=== PATIENT | female | born 1965 | race Caucasian/White ===

== ENCOUNTER → 2019-06-09 10:48 | Outpatient (BNVA) | payer MEDICARE, MEDICAID, SELFPAY | PROVIDERS: Family Provider Internal Medicine; PCP Internal Medicine; Visit Provider Nurse Practitioner | DX: M47.27 Other spondylosis with radiculopathy, lumbosacral region (principal); F17.210 Nicotine dependence, cigarettes, uncomplicated; Z79.891 Long term (current) use of opiate analgesic | CPT/HCPCS: 99213; 99214 ==

== ENCOUNTER → 2019-06-10 15:37 | Outpatient (BNVA) | payer MEDICARE, MEDICAID, SELFPAY | PROVIDERS: Family Provider Internal Medicine; PCP Internal Medicine; Visit Provider Internal Medicine Rheumatology | DX: M35.00 Sjogren syndrome, unspecified (principal); Z79.899 Other long term (current) drug therapy; Z11.59 Encounter for screening for other viral diseases; Z11.1 Encounter for screening for respiratory tuberculosis; M06.4 Inflammatory polyarthropathy; M19.90 Unspecified osteoarthritis, unspecified site; I10 Essential (primary) hypertension; F17.210 Nicotine dependence, cigarettes, uncomplicated | CPT/HCPCS: 99214 ==

== ENCOUNTER 2019-06-11 13:03 | Outpatient (CLI) | payer MEDICARE, MEDICAID, SELFPAY ==
--- NOTE | 2019-06-11 13:10 | XR_ITS ---
WS: [id number] FOOT LEFT TECHNIQUE: 3 views of the left foot CLINICAL INFORMATION: Sjorgen's Syndrome COMPARISON: None. FINDINGS: No evidence of acute fracture or dislocation. Normal tarsal metatarsal alignment. Normal calcaneus. N ormal visualized talar dome. Plantar and Achilles calcaneal spurring. XR/XR foot LT min 3V* [id number] IMPRESSION: Plantar and Achilles calcaneal spurring. Otherwise unremarkable.
--- NOTE | 2019-06-11 13:10 | XR_ITS ---
WS: [id number] FOOT RIGHT TECHNIQUE: 3 views of the right foot CLINICAL INFORMATION: Sjorgen's Syndrome COMPARISON: None. FINDINGS: No evidence of acute fracture or dislocation. Normal tarsal metatarsal alignment. Normal calcaneus. N ormal visualized talar dome. Plantar and Achilles calcaneal spurring. XR/XR foot RT min 3V* [id number] IMPRESSION: Plantar and Achilles calcaneal spurring. Right foot otherwise unremarkable.
--- NOTE | 2019-06-11 13:10 | XR_ITS ---
WS: [id number] HAND RIGHT TECHNIQUE: 3 views of the right hand CLINICAL INFORMATION: inflammatory arthritis COMPARISON: None. FINDINGS: Normal metacarpals. Normal MCP joint. Metacarpal heads are normal in appearance. PIP and DIP joints a re relatively well-preserved. No evidence of acute fracture or dislocation. Radiocarpal joint: Normal. Carpal bones: Normal. XR/XR hand RT min 3V* [id number] IMPRESSION: Normal right hand.
--- NOTE | 2019-06-11 13:10 | XR_ITS ---
WS: [id number] HAND LEFT TECHNIQUE: 3 views of the left hand CLINICAL INFORMATION: Sjorgen's Syndrome COMPARISON: None. FINDINGS: Normal metacarpals. Normal MCP joint. Metacarpal heads are normal in appearance. PIP and DIP joints r elatively well-preserved. No evidence of acute fracture or dislocation. Radiocarpal joint: Normal. Carpal bones: Normal. XR/XR hand LT min 3V* [id number] IMPRESSION: Normal left hand.
== END 2019-06-11 13:04 | disposition home or self-care (01) ==
PROVIDERS: Family Provider Internal Medicine; PCP Internal Medicine; Visit Provider Internal Medicine Rheumatology
DX: M35.00 Sjogren syndrome, unspecified (principal); Z79.899 Other long term (current) drug therapy; Z11.59 Encounter for screening for other viral diseases; Z11.1 Encounter for screening for respiratory tuberculosis; M06.4 Inflammatory polyarthropathy; M19.90 Unspecified osteoarthritis, unspecified site; I10 Essential (primary) hypertension; F17.210 Nicotine dependence, cigarettes, uncomplicated; M77.31 Calcaneal spur, right foot; M77.32 Calcaneal spur, left foot
CPT/HCPCS: 36415; 73130; 73630; 80076; 82565; 85025; 86140; 86431; 86480; 86704; 86803

== ENCOUNTER → 2019-06-11 14:14 | Outpatient (BNVA) | payer MEDICARE, MEDICAID, SELFPAY | PROVIDERS: Family Provider Internal Medicine; PCP Internal Medicine; Visit Provider Internal Medicine Rheumatology | DX: Z79.899 Other long term (current) drug therapy (principal); Z11.59 Encounter for screening for other viral diseases; M19.90 Unspecified osteoarthritis, unspecified site; M35.00 Sjogren syndrome, unspecified; M06.4 Inflammatory polyarthropathy | CPT/HCPCS: 85025 ==

== ENCOUNTER 2019-07-03 10:03 | Outpatient (CLI) | payer MEDICARE, MEDICAID, SELFPAY ==
--- NOTE | 2019-07-03 10:16 | MM_ITS ---
WS: [id number] SCREENING DIGITAL MAMMOGRAM WITH CAD HISTORY: SCREENING COMPARISON: None available. Bilateral CC and MLO views submitted. Computer aided detection analyzed. Breast composition: There are scattered areas of fibroglandular density. Slightly spiculated asymmetr y in the superior RIGHT breast on the MLO projection measures 5 mm. There may be a corresponding asym metry on the CC projection just lateral to the nipple line. Additional lymph node in the posterior RI GHT breast. LEFT breast is negative. RIGHT breast: Spot compression views (CC and MLO). True ML. Ultrasound to follow if abnormality persi sts. MM/[place] [id number] IMPRESSION: BI-RADS: 0-Incomplete: Need additional imaging evaluation FOLLOW UP: Need Additional Imaging
== END 2019-07-03 10:04 | disposition home or self-care (01) ==
LOC: RADSHAW 10:08
PROVIDERS: Family Provider Internal Medicine; PCP Internal Medicine; Visit Provider Internal Medicine
DX: Z12.31 Encounter for screening mammogram for malignant neoplasm of breast (principal)
CPT/HCPCS: 77067

== ENCOUNTER 2019-07-08 06:41 | Day surgery (SDC) | payer MEDICARE, MEDICAID, SELFPAY ==
[2019-07-07 09:49] VITALS: BMI 36.2
[2019-07-08 07:45] VITALS: BP 169/90; PULSE 81; RESP 18; TEMP 36.6; O2SAT 96
--- NOTE | 2019-07-08 07:53 | ANES.PREANE2 ---
Pre-Anesthetic Assessment Pre-Anesthetic Assessment: Height/Weight: Height 1.65 m Weight 98.883 kg Temp Pulse Resp BP Pulse Ox 97.8 F 81 18 169/90 96 07/08/19 07:45 07/08/19 07:45 07/08/19 07:45 07/08/19 07:45 07/08/19 07:45 Preop Diagnosis: Screening colonoscopy Proposed Procedure: Operation Date: 07/08/19 08:30 Proposed Procedures p Colonoscopy 74008 Z12.11(Not Applicable) - Nitin Martinez MD Was Beta Romero taken within 24 hours: N/A Last intake: Intake Last Liquid Date 07/07/19 Last Liquid Time 21:00 Last Solid Date 07/06/19 Last Solid Time 21:00 Social: Social History: Tobacco and No alcohol Exam: Pre-Anes Outpt Exam: alert, oriented x 3, clear to auscultation bilaterally and regular rate & rhythm Airway: Submandibular: WNL Cervical ROM: WNL MP: 2 Dentition: Full Pulmonary: Pulmonary: COPD CV/HEM: CV/HEM: None reported : : None reported Hepatic: Hepatic: None reported GI: GI: GERD Metabolic: Metabolic: Morbid obesity Musc/skel: Musc/skel: Lower Back Pain Anesthetic Plan: ASA status: 3 Anesthesia: MAC Risk of > 500 ml blood loss (7ml/kg in children): No PFSH Anesthesia PFSH: Medical History Long-term current use of opiate analgesic Lumbosacral spondylosis with radiculopathy Pain management contract signed Screen for colon cancer Smoker Surgical History (Updated 06/09/19 @ 11:54 by SUMEET Gill) History of endometrial ablation History of laparoscopic cholecystectomy 1998 Family History (Updated 06/10/19 @ 16:23 by Kasandra Feliz LPN) Denies family history of Rheumatoid arthritis Lupus Anesthesia complication Bleeding disorder Social History Smoking and tobacco status: current every day smoker cigarettes Second hand smoke exposure: Yes Alcohol intake: never Adopted: No Caregiver/support person: Yes Lives independently: Yes Household members: spouse Housing: House Highest education level completed: High School Graduate service: No Current occupational exposures/hazards: No Pets and animals: No History of recent travel: No Sexually active: No Current gender identity: Female Maral/Synagogue: Yazdanism Special maral needs: No Agree to transfusion: No Financial difficulty paying for basics: Decline to Answer Data Anesthesia Cardiac Studies: No Data to Display
[2019-07-08] MEDS: sodium chloride 0.9% 1,000 ML 30 ML (08:01)
--- NOTE | 2019-07-08 09:10 | W.PM.OPSFHP ---
Same Day Surgery H&P Indication for Procedure/HPI DATE OF PROCEDURE: July 08, 2019 CHIEF COMPLAINT/INDICATIONFOR SURGICAL PROCEDURE: I am here for screening colonoscopy PREOP DIAGNOSIS: Screening colonoscopy PLANNED PROCEDRUE: Operation Date: 07/08/19 08:30 Proposed Procedures p Colonoscopy 76968 Z12.11(Not Applicable) - Nitin Martinez MD Patient is 53 years old never had a screening colonoscopy before she has been evaluated in my office to undergo such a procedure today, she denies any other constitutional symptom ROS All systems have been reviewed negative except as per the above and listed per problem list Medications/Allergies* Home Medications Medication Instructions Recorded Confirmed Type levothyroxine 137 mcg capsule 137 mcg PO ONCE 05/02/19 07/08/19 History cyclobenzaprine 10 mg tablet 10 mg PO TID 06/08/19 07/07/19 History loratadine 10 mg tablet 10 mg PO BEDTIME tab 06/09/19 07/08/19 History Allergies/Adverse Reactions Allergy/AdvReac Type Severity Reaction Status Date / Time Penicillins Allergy HIVES Verified 07/08/19 09:10 Sulfa (Sulfonamide Allergy HIVES Verified 07/08/19 09:10 Antibiotics) zonisamide [From Zonegran] Allergy HIVES Verified 07/08/19 09:10 Pertinent History/Comorbid Conditions* Medical History Long-term current use of opiate analgesic Lumbosacral spondylosis with radiculopathy Pain management contract signed Screen for colon cancer Smoker Surgical History (Updated 06/09/19 @ 11:54 by SUMEET Gill) History of endometrial ablation History of laparoscopic cholecystectomy 1998 Family History (Updated 06/10/19 @ 16:23 by Kasandra Feliz LPN) Denies family history of Rheumatoid arthritis Lupus Anesthesia complication Bleeding disorder Social History Smoking and tobacco status: current every day smoker cigarettes Second hand smoke exposure: Yes Alcohol intake: never Adopted: No Caregiver/support person: Yes Lives independently: Yes Household members: spouse Housing: House Highest education level completed: High School Graduate service: No Current occupational exposures/hazards: No Pets and animals: No History of recent travel: No Sexually active: No Current gender identity: Female Maral/Spiritism: Protestant Special maral needs: No Agree to transfusion: No Financial difficulty paying for basics: Decline to Answer Pertinent Exam Findings alert, oriented x 3, clear to auscultation bilaterally, regular rate & rhythm and procedure specific exam findings (Abdominal examination nontender nondistended soft no signs of guarding or rigidity) Pertinent Data PERTINENT DATA: Plan of care; After thorough history and physical examination and reviewing the chart, plan to perform screening colonoscopy in the GI lab All questions have been answered and all concerns have been addressed to patient's satisfaction. Informed consent per chart were,Indications, risks, benefits, and alternatives were all discussed with the patient and did agree to proceed. Verbal and written Instructions were given to the patient for colonoscopy prep Recommendations Surgery/Procedure today (Screening colonoscopy) Coding Level of Care Code Acute Brood Hatchery Manager for Madelyn Garcia
--- NOTE | 2019-07-08 09:32 | SUR.OPER ---
CLIP PLACED AT THE RECTAL POLYP SITE FOR BLEEDING PROPHYLACTIC
--- NOTE | 2019-07-08 09:33 | ANE.PACU2 ---
 Inpatient post-anesthesia follow up: Airway intact: Yes Vital signs: Temperature 97.8 F Pulse Rate 81 Respiratory Rate 18 Blood Pressure 169/90 Pulse Oximetry 96 Oxygen Delivery Me thod Room Air Oxygen Flow Rate Fraction of Inspir ed Oxygen Hydration adequate: Yes Nausea and vomiting: No Pain level: 1 Mental status: Baseline
[2019-07-08 09:39] VITALS: BP 144/86; PULSE 69; RESP 16; TEMP 36.3; O2SAT 93
[2019-07-08 09:54] VITALS: BP 146/77; PULSE 71; RESP 18; O2SAT 96
== END 2019-07-08 10:07 | disposition home or self-care (01) ==
PROVIDERS: Family Provider Internal Medicine; PCP Internal Medicine; Visit Provider Surgery
PROC: 0DJD8ZZ Inspection of Lower Intestinal Tract, Via Natural or Artificial Opening Endoscopic (ICD-10-PCS; CPT 45378; principal; 2019-07-08 08:30)
DX: Z12.11 Encounter for screening for malignant neoplasm of colon (principal); K62.1 Rectal polyp; Z79.891 Long term (current) use of opiate analgesic; F17.210 Nicotine dependence, cigarettes, uncomplicated; J44.9 Chronic obstructive pulmonary disease, unspecified; K21.9 Gastro-esophageal reflux disease without esophagitis; E66.01 Morbid (severe) obesity due to excess calories; Z68.36 Body mass index [BMI] 36.0-36.9, adult
CPT/HCPCS: 12345; 45385; J2704; J7030

== ENCOUNTER 2019-07-22 08:47 | Outpatient (CLI) | payer MEDICARE, MEDICAID, SELFPAY ==
--- NOTE | 2019-07-22 09:23 | MM_ITS ---
WS: [id number] ADDITIONAL VIEWS RIGHT BREAST HISTORY: SPICULATED ASYMMETRY RIGHT BREAST COMPARISON: 07/03/2019 Compression views right CC and MLO projection. True ML also submitted. Asymmetry described in the upper outer quadrant of the RIGHT breast on the screening mammogram resolv es with additional imaging. This is likely superimposed fibroglandular densities. MM/[place] [id number] IMPRESSION: BI-RADS: 2-Benign FOLLOW-UP: 1 Year Follow-up
== END 2019-07-22 08:48 | disposition home or self-care (01) ==
LOC: RADSHAW 08:48
PROVIDERS: Family Provider Internal Medicine; PCP Internal Medicine; Visit Provider Internal Medicine
DX: N64.89 Other specified disorders of breast (principal); R92.2 Inconclusive mammogram
CPT/HCPCS: 77065

== ENCOUNTER → 2019-10-16 12:53 | Outpatient (BNVA) | payer MEDICARE, MEDICAID, SELFPAY | PROVIDERS: Family Provider Internal Medicine; PCP Internal Medicine; Visit Provider Anesthesiology | DX: M54.42 Lumbago with sciatica, left side (principal); M47.27 Other spondylosis with radiculopathy, lumbosacral region; M54.9 Dorsalgia, unspecified; F17.210 Nicotine dependence, cigarettes, uncomplicated; Z79.891 Long term (current) use of opiate analgesic; Z71.6 Tobacco abuse counseling | CPT/HCPCS: 99214 ==

== ENCOUNTER 2019-10-19 16:31 | Outpatient (CLI) | payer MEDICARE, MEDICAID, SELFPAY | END 2019-10-19 16:32 | disposition home or self-care (01) | LOC: SPT 16:32 | PROVIDERS: Family Provider Internal Medicine; PCP Internal Medicine; Visit Provider Podiatrist Foot & Ankle Surgery | DX: M21.41 Flat foot [pes planus] (acquired), right foot (principal); M21.42 Flat foot [pes planus] (acquired), left foot; M77.41 Metatarsalgia, right foot; M77.42 Metatarsalgia, left foot | CPT/HCPCS: 97760; L3030 ==

== ENCOUNTER → 2019-11-05 10:48 | Outpatient (BNVA) | payer MEDICARE, MEDICAID, SELFPAY | PROVIDERS: Family Provider Internal Medicine; PCP Internal Medicine; Visit Provider Internal Medicine Rheumatology | DX: Z79.899 Other long term (current) drug therapy (principal) | CPT/HCPCS: 36415; 80076; 82565; 85025; 85651; 86140 ==

== ENCOUNTER → 2019-12-09 14:55 | Outpatient (BNVA) | payer MEDICARE, MEDICAID, SELFPAY | PROVIDERS: Family Provider Internal Medicine; PCP Internal Medicine; Visit Provider Internal Medicine Rheumatology | DX: M06.00 Rheumatoid arthritis without rheumatoid factor, unspecified site (principal); M35.00 Sjogren syndrome, unspecified; Z79.899 Other long term (current) drug therapy; G57.10 Meralgia paresthetica, unspecified lower limb; F17.210 Nicotine dependence, cigarettes, uncomplicated; G56.03 Carpal tunnel syndrome, bilateral upper limbs; I10 Essential (primary) hypertension; M43.04 Spondylolysis, thoracic region; E06.3 Autoimmune thyroiditis | CPT/HCPCS: 99214 ==

== ENCOUNTER → 2019-12-17 12:58 | Outpatient (BNVA) | payer MEDICARE, MEDICAID, SELFPAY | PROVIDERS: Family Provider Internal Medicine; PCP Internal Medicine; Visit Provider Anesthesiology | DX: M54.42 Lumbago with sciatica, left side (principal); M47.27 Other spondylosis with radiculopathy, lumbosacral region; M54.9 Dorsalgia, unspecified; F17.210 Nicotine dependence, cigarettes, uncomplicated; Z79.891 Long term (current) use of opiate analgesic; Z71.6 Tobacco abuse counseling | CPT/HCPCS: 99214 ==

== ENCOUNTER → 2020-02-17 12:49 | Outpatient (BNVA) | payer MEDICARE, MEDICAID, SELFPAY | PROVIDERS: Family Provider Internal Medicine; PCP Internal Medicine; Visit Provider Anesthesiology | DX: M47.27 Other spondylosis with radiculopathy, lumbosacral region (principal); M54.9 Dorsalgia, unspecified; F17.210 Nicotine dependence, cigarettes, uncomplicated; Z79.891 Long term (current) use of opiate analgesic; Z71.6 Tobacco abuse counseling | CPT/HCPCS: 99214 ==

== ENCOUNTER → 2020-03-09 13:42 | Outpatient (BNVA) | payer MEDICARE, MEDICAID, SELFPAY | PROVIDERS: Family Provider Internal Medicine; PCP Internal Medicine; Visit Provider Internal Medicine Rheumatology | DX: M06.00 Rheumatoid arthritis without rheumatoid factor, unspecified site (principal); M35.00 Sjogren syndrome, unspecified; M19.09 Primary osteoarthritis, other specified site; M47.27 Other spondylosis with radiculopathy, lumbosacral region; G57.10 Meralgia paresthetica, unspecified lower limb; G56.03 Carpal tunnel syndrome, bilateral upper limbs; I10 Essential (primary) hypertension; E78.5 Hyperlipidemia, unspecified; E06.3 Autoimmune thyroiditis; F17.210 Nicotine dependence, cigarettes, uncomplicated; Z79.899 Other long term (current) drug therapy | CPT/HCPCS: 99214 ==

== ENCOUNTER → 2020-04-13 14:30 | Outpatient (BNVA) | payer MEDICARE, MEDICAID, SELFPAY | PROVIDERS: Family Provider Internal Medicine; PCP Internal Medicine; Visit Provider Nurse Practitioner | DX: M47.27 Other spondylosis with radiculopathy, lumbosacral region (principal); M54.9 Dorsalgia, unspecified; F17.210 Nicotine dependence, cigarettes, uncomplicated; Z79.891 Long term (current) use of opiate analgesic; Z71.6 Tobacco abuse counseling | CPT/HCPCS: 99213 ==

== ENCOUNTER → 2020-06-30 10:54 | Outpatient (BNVA) | payer MEDICARE, MEDICAID, SELFPAY | PROVIDERS: Family Provider Internal Medicine; PCP Internal Medicine; Visit Provider Nurse Practitioner | DX: M47.27 Other spondylosis with radiculopathy, lumbosacral region (principal); M06.00 Rheumatoid arthritis without rheumatoid factor, unspecified site; M54.9 Dorsalgia, unspecified; F17.210 Nicotine dependence, cigarettes, uncomplicated; Z79.891 Long term (current) use of opiate analgesic | CPT/HCPCS: 99213 ==

== ENCOUNTER → 2020-07-19 12:53 | Outpatient (BNVA) | payer MEDICARE, MEDICAID, SELFPAY | PROVIDERS: Family Provider Internal Medicine; PCP Internal Medicine; Visit Provider Internal Medicine Rheumatology | DX: M06.00 Rheumatoid arthritis without rheumatoid factor, unspecified site (principal); M35.00 Sjogren syndrome, unspecified; Z79.899 Other long term (current) drug therapy; J40 Bronchitis, not specified as acute or chronic; I10 Essential (primary) hypertension; G56.03 Carpal tunnel syndrome, bilateral upper limbs; F17.210 Nicotine dependence, cigarettes, uncomplicated; R09.89 Other specified symptoms and signs involving the circulatory and respiratory systems | CPT/HCPCS: 36415; 71046; 80076; 82565; 85025; 86140; 99214 ==

== ENCOUNTER 2020-07-19 15:00 | Outpatient (CLI) | payer MEDICARE, MEDICAID, SELFPAY ==
--- NOTE | 2020-07-19 15:14 | XR_ITS ---
WS: [id number] CHEST 2 VIEWS HISTORY: Z79.899 - Other watermaster (current) drug therapy COMPARISON: 08/25/2015 Lungs: Clear with no abnormality. No pleural effusion or pneumothorax. Cardiac size: Normal. Mediastinum/Aorta: Normal mediastinum. Bones: Moderate increase in thoracic kyphosis. XR/XR chest 2V* [id number] IMPRESSION: No acute cardiopulmonary disease.
[2020-07-19 15:51] LABS: Basophils # 0.1 10^3/uL (0.0-0.1); Basophils % 1.7 %; Eosinophils # 0.6 10^3/uL (0.0-0.8); Eosinophils % 7.7 %; Hematocrit 47.9 % (37.0-47.0); Hemoglobin 15.1 g/dL (11.5-15.3); Lymphocytes # 1.8 10^3/uL (0.8-4.8); Lymphocytes % 23.8 %; Mean Corpuscular HGB Conc 31.5 g/dL (30.0-36.0); Mean Corpuscular Hemoglobin 30.1 pg (28.0-34.0); Mean Corpuscular Volume 95.6 fL (81-99); Mean Platelet Volume 11.3 fL (7.4-10.4); Monocytes # 0.7 10^3/uL (0.2-0.9); Neutrophils # 4.34 10^3/uL (1.8-7.7); Neutrophils % 57.3 %; Nucleated Red Blood Cells % 0 %; Platelet Count 240 10^3/cmm (130-400); Red Blood Count 5.01 10^6/uL (4.1-5.3); Red Cell Distribution Width 13.4 % (12.1-15.1); White Blood Count 7.6 10^3/uL (4.0-10.0)
[2020-07-19 16:05] LABS: Alanine Aminotransferase 21 U/L (0-33); Albumin Level 3.6 g/dL (3.5-5.2); Alkaline Phosphatase 154 IU/L (35-105); Aspartate Amino Transferase 30 U/L (0-32); C Reactive Protein 16.7 mg/L (0.0-4.9); Globulin 3.7 g/dL (1.3-4.6); Glomerular Filtration Rate 64.8 mL/min (90-130); Total Bilirubin 0.5 mg/dL (0.15-1.2); Total Protein 7.3 g/dL (6.6-8.7)
== END 2020-07-19 15:01 | disposition home or self-care (01) ==
PROVIDERS: PCP Internal Medicine; Visit Provider Internal Medicine Rheumatology
DX: M06.00 Rheumatoid arthritis without rheumatoid factor, unspecified site (principal); R09.89 Other specified symptoms and signs involving the circulatory and respiratory systems; Z79.899 Other long term (current) drug therapy
CPT/HCPCS: 36415; 71046; 80076; 82565; 85025; 86140

== ENCOUNTER → 2020-08-25 13:18 | Outpatient (BNVA) | payer MEDICARE, MEDICAID, SELFPAY | PROVIDERS: PCP Internal Medicine; Visit Provider Anesthesiology | DX: M47.27 Other spondylosis with radiculopathy, lumbosacral region (principal); M06.00 Rheumatoid arthritis without rheumatoid factor, unspecified site; M54.9 Dorsalgia, unspecified; F17.210 Nicotine dependence, cigarettes, uncomplicated; Z79.891 Long term (current) use of opiate analgesic; Z79.899 Other long term (current) drug therapy | CPT/HCPCS: 99213 ==

== ENCOUNTER → 2020-10-12 13:05 | Outpatient (BNVA) | payer MEDICARE, MEDICAID, SELFPAY | PROVIDERS: PCP Internal Medicine; Visit Provider Internal Medicine Rheumatology | DX: Z71.89 Other specified counseling (principal); Z79.899 Other long term (current) drug therapy; M06.00 Rheumatoid arthritis without rheumatoid factor, unspecified site | CPT/HCPCS: 36415; 80076; 82565; 85025; 86140 ==

== ENCOUNTER → 2020-10-19 13:02 | Outpatient (BNVA) | payer MEDICARE, MEDICAID, SELFPAY | PROVIDERS: PCP Internal Medicine; Visit Provider Internal Medicine Rheumatology | DX: M06.00 Rheumatoid arthritis without rheumatoid factor, unspecified site (principal); M35.00 Sjogren syndrome, unspecified; Z79.899 Other long term (current) drug therapy; G56.03 Carpal tunnel syndrome, bilateral upper limbs; G57.10 Meralgia paresthetica, unspecified lower limb; I10 Essential (primary) hypertension; F17.210 Nicotine dependence, cigarettes, uncomplicated | CPT/HCPCS: 99214 ==

== ENCOUNTER → 2020-10-26 11:10 | Outpatient (BNVA) | payer MEDICARE, MEDICAID, SELFPAY | PROVIDERS: PCP Internal Medicine; Visit Provider Nurse Practitioner | DX: M47.27 Other spondylosis with radiculopathy, lumbosacral region (principal); M54.9 Dorsalgia, unspecified; M06.00 Rheumatoid arthritis without rheumatoid factor, unspecified site; G57.10 Meralgia paresthetica, unspecified lower limb; M35.00 Sjogren syndrome, unspecified; F17.210 Nicotine dependence, cigarettes, uncomplicated; Z79.891 Long term (current) use of opiate analgesic; Z71.6 Tobacco abuse counseling | CPT/HCPCS: 99213; 99214 ==

== ENCOUNTER → 2020-12-20 13:05 | Outpatient (BNVA) | payer MEDICARE, MEDICAID, SELFPAY | PROVIDERS: PCP Internal Medicine; Visit Provider Anesthesiology | DX: M54.42 Lumbago with sciatica, left side (principal); M47.27 Other spondylosis with radiculopathy, lumbosacral region; M06.00 Rheumatoid arthritis without rheumatoid factor, unspecified site; F17.210 Nicotine dependence, cigarettes, uncomplicated; Z79.891 Long term (current) use of opiate analgesic; Z79.899 Other long term (current) drug therapy; Z79.1 Long term (current) use of non-steroidal anti-inflammatories (NSAID) | CPT/HCPCS: 99213 ==

== ENCOUNTER → 2020-12-22 14:18 | Outpatient (BNVA) | payer MEDICARE, MEDICAID, SELFPAY | PROVIDERS: PCP Internal Medicine; Visit Provider Internal Medicine Rheumatology | DX: Z79.899 Other long term (current) drug therapy (principal); M06.00 Rheumatoid arthritis without rheumatoid factor, unspecified site; M35.00 Sjogren syndrome, unspecified; M47.27 Other spondylosis with radiculopathy, lumbosacral region; Z71.89 Other specified counseling | CPT/HCPCS: 36415; 80076; 82565; 85025; 86140 ==

== ENCOUNTER → 2021-01-11 13:20 | Outpatient (BNVA) | payer MEDICARE, MEDICAID, SELFPAY | PROVIDERS: PCP Internal Medicine; Visit Provider Internal Medicine Rheumatology | DX: M06.00 Rheumatoid arthritis without rheumatoid factor, unspecified site (principal); M35.00 Sjogren syndrome, unspecified; Z79.899 Other long term (current) drug therapy; M47.894 Other spondylosis, thoracic region; G56.03 Carpal tunnel syndrome, bilateral upper limbs; I10 Essential (primary) hypertension; E78.5 Hyperlipidemia, unspecified; G47.33 Obstructive sleep apnea (adult) (pediatric); E06.3 Autoimmune thyroiditis; Z71.89 Other specified counseling; F17.210 Nicotine dependence, cigarettes, uncomplicated | CPT/HCPCS: 99214 ==

== ENCOUNTER → 2021-01-16 10:02 | Outpatient (BNVA) | payer MEDICARE, MEDICAID, SELFPAY | PROVIDERS: PCP Internal Medicine; Visit Provider Specialist | DX: G56.03 Carpal tunnel syndrome, bilateral upper limbs (principal); F17.210 Nicotine dependence, cigarettes, uncomplicated | CPT/HCPCS: 95910 ==

== ENCOUNTER → 2021-02-21 13:31 | Outpatient (BNVA) | payer MEDICARE, MEDICAID, SELFPAY | PROVIDERS: PCP Internal Medicine; Visit Provider Anesthesiology | DX: M47.27 Other spondylosis with radiculopathy, lumbosacral region (principal); F17.200 Nicotine dependence, unspecified, uncomplicated; Z79.899 Other long term (current) drug therapy; Z79.1 Long term (current) use of non-steroidal anti-inflammatories (NSAID); Z79.891 Long term (current) use of opiate analgesic; Z71.6 Tobacco abuse counseling | CPT/HCPCS: 99213; 99214 ==

== ENCOUNTER → 2021-04-20 13:01 | Outpatient (BNVA) | payer MEDICARE, MEDICAID, SELFPAY | PROVIDERS: PCP Internal Medicine; Visit Provider Anesthesiology | DX: M47.27 Other spondylosis with radiculopathy, lumbosacral region (principal); F17.210 Nicotine dependence, cigarettes, uncomplicated; Z79.891 Long term (current) use of opiate analgesic; Z79.899 Other long term (current) drug therapy | CPT/HCPCS: 99213 ==

== ENCOUNTER 2021-05-08 14:37 | Outpatient (CLI) | payer MEDICARE, MEDICAID, SELFPAY ==
[2021-05-08 15:19] LABS: Basophils # 0.1 10^3/uL (0.0-0.1); Basophils % 2.2 %; Eosinophils # 0.5 10^3/uL (0.0-0.8); Eosinophils % 8.9 %; Hematocrit 46.8 % (37.0-47.0); Hemoglobin 15.1 g/dL (11.5-15.3); Lymphocytes # 1.8 10^3/uL (0.8-4.8); Lymphocytes % 30.5 %; Mean Corpuscular HGB Conc 32.3 g/dL (30.0-36.0); Mean Corpuscular Hemoglobin 30.4 pg (28.0-34.0); Mean Corpuscular Volume 94.2 fl (81-99); Mean Platelet Volume 11.7 fL (7.4-10.4); Monocytes # 0.7 10^3/uL (0.2-0.9); Monocytes % 11.1 %; Neutrophils # 2.81 10^3/uL (1.8-7.7); Neutrophils % 47.1 %; Nucleated Red Blood Cells % 0 %; Platelet Count 192 10^3/cmm (130-400); Red Blood Count 4.97 10^6/uL (4.1-5.3)
[2021-05-08 15:31] LABS: Erythrocyte Sedimentation Rate 40 mm/hr (0-15)
[2021-05-08 15:50] LABS: Alanine Aminotransferase 21 U/L (0-33); Albumin Level 3.9 g/dL (3.5-5.2); Alkaline Phosphatase 149 IU/L (35-105); Aspartate Amino Transferase 35 U/L (0-32); C Reactive Protein 5.9 mg/L (0.0-4.9); Globulin 3.2 g/dL (1.3-4.6); Total Bilirubin 0.4 mg/dL (0.15-1.2); Total Protein 7.1 g/dL (6.6-8.7)
== END 2021-05-08 14:38 | disposition home or self-care (01) ==
LOC: LAB 14:41
PROVIDERS: PCP Internal Medicine; Visit Provider Internal Medicine Rheumatology
DX: M06.00 Rheumatoid arthritis without rheumatoid factor, unspecified site (principal); M19.90 Unspecified osteoarthritis, unspecified site
CPT/HCPCS: 36415; 80076; 85025; 85651; 86140

== ENCOUNTER → 2021-05-10 14:40 | Outpatient (BNVA) | payer MEDICARE, MEDICAID, SELFPAY | PROVIDERS: PCP Internal Medicine; Visit Provider Internal Medicine Rheumatology | DX: M06.00 Rheumatoid arthritis without rheumatoid factor, unspecified site (principal); M35.00 Sjogren syndrome, unspecified; Z79.899 Other long term (current) drug therapy; M25.551 Pain in right hip; M25.552 Pain in left hip; F17.210 Nicotine dependence, cigarettes, uncomplicated; Z71.89 Other specified counseling | CPT/HCPCS: 99214 ==

== ENCOUNTER 2021-06-14 13:57 | Outpatient (CLI) | payer MEDICARE, MEDICAID, SELFPAY ==
[2021-06-14 14:23] LABS: Basophils # 0.1 10^3/uL (0.0-0.1); Basophils % 1.9 %; Eosinophils # 0.5 10^3/uL (0.0-0.8); Eosinophils % 8.8 %; Hematocrit 46.2 % (37.0-47.0); Hemoglobin 14.8 g/dL (11.5-15.3); Lymphocytes % 34.1 %; Mean Corpuscular Hemoglobin 30.7 pg (28.0-34.0); Mean Corpuscular Volume 95.9 fl (81-99); Mean Platelet Volume 11.6 fL (7.4-10.4); Monocytes # 0.6 10^3/uL (0.2-0.9); Monocytes % 10.1 %; Neutrophils # 2.67 10^3/uL (1.8-7.7); Neutrophils % 44.9 %; Nucleated Red Blood Cells % 0 %; Platelet Count 172 10^3/cmm (130-400); Red Blood Count 4.82 10^6/uL (4.1-5.3); Red Cell Distribution Width 13.2 % (12.1-15.1); White Blood Count 5.9 10^3/uL (4.0-10.0)
[2021-06-14 14:43] LABS: Alanine Aminotransferase 21 U/L (0-33); Albumin Level 3.9 g/dL (3.5-5.2); Alkaline Phosphatase 168 IU/L (35-105); C Reactive Protein 9.4 mg/L (0.0-4.9); Globulin 3.2 g/dL (1.3-4.6); Glomerular Filtration Rate 73.9 mL/min (90-130); Total Bilirubin 0.3 mg/dL (0.15-1.2); Total Protein 7.1 g/dL (6.6-8.7)
[2021-06-14 14:46] LABS: Aspartate Amino Transferase 29 U/L (0-32)
== END 2021-06-14 13:58 | disposition home or self-care (01) ==
LOC: LAB 14:05
PROVIDERS: PCP Internal Medicine; Visit Provider Internal Medicine Rheumatology
DX: M06.00 Rheumatoid arthritis without rheumatoid factor, unspecified site (principal); Z79.899 Other long term (current) drug therapy
CPT/HCPCS: 80076; 82565; 85025; 86140

== ENCOUNTER → 2021-06-27 08:34 | Outpatient (BNVA) | payer MEDICARE, MEDICAID, SELFPAY | PROVIDERS: PCP Internal Medicine; Visit Provider Physician Assistant | DX: M47.27 Other spondylosis with radiculopathy, lumbosacral region (principal) | CPT/HCPCS: 72110 ==

== ENCOUNTER → 2021-06-29 08:57 | Outpatient (BNVA) | payer MEDICARE, MEDICAID, SELFPAY | PROVIDERS: PCP Internal Medicine; Visit Provider Anesthesiology Pain Medicine | DX: M47.27 Other spondylosis with radiculopathy, lumbosacral region (principal); M47.22 Other spondylosis with radiculopathy, cervical region; M79.605 Pain in left leg; M25.551 Pain in right hip; M25.552 Pain in left hip; G56.03 Carpal tunnel syndrome, bilateral upper limbs; M35.00 Sjogren syndrome, unspecified; F17.210 Nicotine dependence, cigarettes, uncomplicated; Z79.891 Long term (current) use of opiate analgesic | CPT/HCPCS: 99205 ==

== ENCOUNTER → 2021-07-26 09:35 | Outpatient (BNVA) | payer MEDICARE, MEDICAID, SELFPAY | PROVIDERS: PCP Internal Medicine; Visit Provider Anesthesiology Pain Medicine | DX: M47.27 Other spondylosis with radiculopathy, lumbosacral region (principal); M47.22 Other spondylosis with radiculopathy, cervical region; M79.605 Pain in left leg; M25.551 Pain in right hip; M25.552 Pain in left hip; G56.03 Carpal tunnel syndrome, bilateral upper limbs; M35.00 Sjogren syndrome, unspecified; F17.210 Nicotine dependence, cigarettes, uncomplicated; Z79.891 Long term (current) use of opiate analgesic | CPT/HCPCS: 99214 ==

== ENCOUNTER 2021-08-01 20:50 | Emergency (ER) | payer MEDICARE, MEDICAID, SELFPAY ==
[2021-08-01 20:55] VITALS: BP 166/84; PULSE 77; RESP 20; TEMP 36.7; O2SAT 96; BMI 37.8
--- NOTE | 2021-08-01 21:07 | CTR_ITS ---
PROCEDURE INFORMATION: Exam: CT Head Without Contrast Exam date and time: 08/01/2021 10:21 PM Age: 55 years old Clinical indication: Pain; Numbness / parasthesia; Headache; Patient HX: C/O ARREOLA with RT facial numbness. History of migraines TECHNIQUE: Imaging protocol: Computed tomography of the head without contrast. Radiation optimization: All CT scans at this facility use at least one of these dose optimization techniques: automated exposure control; mA and/or kV adjustment per patient size (includes targeted exams where dose is matched to clinical indication); or iterative reconstruction. COMPARISON: No relevant prior studies available. RADIATION DOSE METRICS: Total DLP (mGy-cm): 814.51 FINDINGS: Brain: Normal. No hemorrhage. Unremarkable white matter. No mass effect. Cerebral ventricles: No ventriculomegaly. Paranasal sinuses: Visualized sinuses are unremarkable. No fluid levels. Mastoid air cells: Visualized mastoid air cells are well aerated. Bones/joints: Unremarkable. No acute fracture. Soft tissues: Unremarkable. CT/CT head wo con* [id number] IMPRESSION: No acute intracranial abnormality.
--- NOTE | 2021-08-01 21:12 | W.ED.NEUROSD ---
HPI - Neuro Symptoms/Deficit General: Chief Complaint: Neuro Symptoms/Deficit Stated Complaint: numbness in face, headache Time Seen by Provider: 08/01/21 21:03 Source: patient Mode of arrival: ambulatory Limitations: no limitations History of Present Illness: 55-year-old female who states she does have a history of migraines been having a migraine this evening starting roughly an hour and a half ago. States that with this migraine she been having some episodic numbness to the right side of her face. States that she does get some numbness to that side that lasts few minutes and then resolves. She denies any facial droop any difficulty speaking she had no extremity weakness. States that she has not really had this before with her migraines. Denies any fever. Associated symptoms: Reports headache(s); Deny chest pain, nausea or vomiting Review of Systems Const: Denies: fever(s), chills, body aches or change in appetite Eyes: Denies: blurry vision or eye discomfort ENMT: Denies: throat pain or dental pain Card: Denies: chest pain Resp: Denies: dyspnea GI: Denies: abdominal pain, nausea, vomiting or diarrhea : Denies: dysuria Musc: Denies: neck pain or back pain Skin/Breast: Denies: rash Neuro: Reports: headache(s) and numbness in extremities Psych: Denies: depression Jhony/Lymph: Denies: easy bruising All/Imm: Denies: urticaria PFSH ED PFSH: Medical History Bronchitis Chronic steroid use Encounter for long-term (current) use of NSAIDs Greater trochanteric pain syndrome of both lower extremities High risk medication use Immunization counseling Inflammatory arthritis Long-term current use of opiate analgesic Lumbosacral spondylosis with radiculopathy Meralgia paraesthetica Pain management contract signed Psychiatric care Screen for colon cancer Seronegative rheumatoid arthritis Sjogren's syndrome Smoker Surgical History History of colonoscopy with polypectomy (~06/2019) History of endometrial ablation History of laparoscopic cholecystectomy 1999 Family History Other Cancer Chronic kidney disease (CKD) Rheumatoid arthritis Denies family history of Diabetes Lupus Systemic lupus erythematosus (SLE) in adult Anesthesia complication Bleeding disorder Hypertension Stroke Social History Smoking and tobacco status: current every day smoker (trying to quit-5 cig day) cigarettes Packs smoked per day: 0.5 Alcohol intake: never Adopted: No Caregiver/support person: Yes Lives independently: Yes Household members: spouse Housing: House Highest education level completed: High School Graduate service: No Current occupational exposures/hazards: No Pets and animals: No History of recent travel: No Sexually active: No Current gender identity: Female Maral/Sabianism: Pentecostal Special maral needs: No Agree to transfusion: No Financial difficulty paying for basics: Decline to Answer NIH stroke score NIHSS: Level Of Consciousness - 1a: 0 Level Of Consciousness Questions - 1b: Both Correct Level Of Consciousness Commands - 1c: Both Correct Best Gaze - 2: Normal Visual Nicole - 3: No Visual Loss Facial Palsy - 4: Normal Motor Arm Right - 5: No Drift Motor Arm Left - 5: No Drift Motor Leg Right - 6: No Drift Motor Leg Left - 6: No Drift Limb Ataxia - 7: Absent Sensory - 8: Normal Best Language - 9: No Aphasia Dysarthia - 10: Normal Extinction And Inattention - 11: 0 Score: Total Score: 0 Physical Exam Const: COMMON NORMALS: no acute distress, patient oriented x3 and healthy appearing HENMT: COMMON NORMALS: normocephalic and atraumatic HEAD & SCALP: normocephalic and atraumatic Eye: COMMON NORMALS: Equal, round and reactive pupils present and EOMs intact bilaterally PUPIL: Yes Equal, round and reactive pupils present Neck/C-Spine: COMMON NORMALS: full ROM and supple Chest: COMMONS NORMALS: normal inspection of the chest and normal palpation of entire chest wall Resp: COMMON NORMALS: normal respiratory effort, No retractions, No use of accessory muscles and clear to auscultation bilaterally AUSCULTATION: clear to auscultation bilaterally Cardio: COMMON NORMALS: regular rate, regular rhythm and No murmurs present (Cardio) RATE: regular rate RHYTHM: regular rhythm GI: COMMON NORMALS: Normal to inspection, nondistended, normoactive bowel sounds present, Soft to palpation, non-tender and no masses PALPATION: Yes Soft to palpation Extremity: COMMON NORMALS: normal to inspection and full ROM Neuro: COMMON NORMALS: patient oriented x3, moves all extremities and no focal motor deficits Psych: COMMON NORMALS: mental status grossly normal, Normal thought process present and cooperative THOUGHT PROCESS: Normal thought process present Skin: COMMON NORMALS: no rashes or lesions noted and no wounds GENERAL SKIN EXAM: no rashes or lesions noted Course Vital Signs: Vital signs: Vital Signs Temperature 98.1 F 08/01/21 20:55 Pulse Rate 74 08/02/21 00:02 Respiratory Rate 16 08/02/21 00:02 Blood Pressure 139/78 08/02/21 00:02 Pulse Oximetry 93 08/02/21 00:02 [facility] - Neuro Symptoms/Deficit Medical Decision Making Patient presents here with a migraine headache likely with aura causing her paresthesias her headache here is resolved after Reglan Benadryl her paresthesias has resolved as well. She had no other neurologic deficits CT head was normal she has no signs of a stroke. She is stable for discharge she is to follow-up in 3 to 7 days return if worsening she understands agrees to plan. Lab Data Radiology Impressions Head CT 08/01/21 21:07 IMPRESSION: No acute intracranial abnormality. Discharge Plan Discharge Patient Disposition: Home Clinical Impression: Migraine, Paresthesia Condition: Stable Prescriptions: No Action clotrimazole 1 % cream 1 applic TOPICAL BID 28 Days Qty: 30 0RF (DME) Sole Supports See Rx Instructions .ROUTE .MEDSUPPLY Qty: 1 0RF Rx Instructions: As directed levothyroxine 112 mcg capsule 112 mcg PO ONCE 0RF hydrocodone-acetaminophen 10-325 mg tablet 1 tab PO TID PRN (Reason: pain) 30 Days Qty: 90 0RF Rx Instructions: fill on or after 04/30/21 pregabalin 100 mg capsule 100 mg PO TID 30 Days Qty: 90 1RF hydrocodone-acetaminophen 10-325 mg tablet 1 tab PO BID PRN (Reason: pain) 30 Days Qty: 60 0RF Rx Instructions: may fill 30 days after previous refill. loratadine 10 mg tablet 10 mg PO BEDTIME 0RF Enbrel Mini 50 mg/mL (1 mL) cartridge 50 mg SUBCUT .weekly Qty: 4 3RF hydroxychloroquine 200 mg tablet 200 mg PO BID Qty: 60 3RF leflunomide 10 mg tablet 10 mg PO .QD 30 Days Qty: 30 3RF prednisone 10 mg tablet See Rx Instructions PO .COMPLEX Qty: 30 1RF Rx Instructions: take 1-2 tab daily for 4-5 days prn joint pain flare PO; pantoprazole 40 mg tablet,delayed release (DR/EC) 40 mg PO DAILY Qty: 90 1RF Discharge Orders: Discharge ED (Routine); Ordered 08/01/21 Ordered By: Emily Arce Referrals: Steph Marie MD [Physician] - 1-3 days Wilmer Cabrera DO [Primary Care Provider] - 1-3 days Discharge Diet: Advance as tolerated Discharge Activity: Resume usual activity Patient Instructions: Migraine Headache (ED) Coding Level of Care Code ED Warehouse Logistics Manager for Chg Fwd Exam Comprehensive
[2021-08-01 21:50] VITALS: BP 170/98; PULSE 81; O2SAT 95
[2021-08-01] MEDS: diphenhydrAMINE 50 mg/mL SDV 1mL 25 MG IVP (21:53)
[2021-08-01] MEDS: ketorolac 30 mg/mL INJ 15 MG IVP (21:55)
[2021-08-01] MEDS: metoclopramide 5 mg/mL SDV 2 mL IVP (21:57)
[2021-08-01 22:43] VITALS: BP 180/87; PULSE 76; RESP 18; O2SAT 93
[2021-08-01 22:54] VITALS: BP 163/86; PULSE 81; RESP 17; O2SAT 93
[2021-08-02 00:02] VITALS: BP 139/78; PULSE 74; RESP 16; O2SAT 93
--- NOTE | 2021-08-02 11:56 | DCPLANNER ---
Addendum entered by Patsy Harris 10/16/21 07:42: Patient had a follow up appointment scheduled with neurology - patient did not attend appointment. Addendum entered by Patsy Harris 08/04/21 07:37: Patient has a follow up appointment scheduled for Saturday, October 11, 2021 at 10:[address] Marie at neurology. Clinic will call patient with appointment information. Original Note: technical training manager had message to schedule a follow up appointment for patient with neurology. technical training manager sent patients information to neurology front office for review. Patients information will be printed and reviewed. Clinic will call patient with appointment information.
== END 2021-08-01 23:59 | disposition home or self-care (01) ==
PROVIDERS: Emergency Provider Emergency Medicine; PCP Internal Medicine
DX: R20.0 Anesthesia of skin (principal); R51.9 Headache, unspecified; G43.909 Migraine, unspecified, not intractable, without status migrainosus; R20.2 Paresthesia of skin; F17.210 Nicotine dependence, cigarettes, uncomplicated
CPT/HCPCS: 70450; 96374; 96375; 99283; J1200; J1885; J2765

== ENCOUNTER 2021-08-15 08:53 | Outpatient (CLI) | payer MEDICARE, MEDICAID, SELFPAY ==
--- NOTE | 2021-08-15 09:30 | MR_ITS ---
WS: [id number] MRI LUMBAR SPINE NONCONTRAST HISTORY: Low back pain for 7 years. LEFT leg pains. COMPARISON: 06/08/2015, CT lumbar spine 03/05/2016 TECHNIQUE: Sagittal and axial multisequence imaging is submitted. Marked increase in the thoracic kyphosis and cervical lordosis. Mild increase in the lumbar lordosis. Posterior alignment is normal. Disc spaces and vertebral body heights are well-preserved. Conus terminates normally at L1-2 disc level. Well-rounded 4 mm nodule at the L3-4 disc level inseparable from the nerve roots and filum terminale. This was previously described and low signal on all sequences. On a prior CT noted to be a calcifica tion. L1-L2: Normal. L2-L3: Normal. L3-L4: Normal. L4-L5: Moderate bilateral facet joint arthritis and ligamentum flavum arthropathy. No focal disc prot rusion. L5-S1: Mild bilateral facet joint arthritis. No focal disc protrusion or stenosis. Paravertebral soft tissues are normal. MR/MR lumbar spine wo con* [id number] IMPRESSION: 1. Long-term stability of a calcification associated with the filum terminale at the L3-4 disc level. 2. No central or foraminal stenosis or disc protrusions. 3. Moderate facet joint arthritis at L4-5 and mild at L5-S1.
== END 2021-08-15 08:54 | disposition home or self-care (01) ==
LOC: RAD 08:55
PROVIDERS: PCP Internal Medicine; Visit Provider Orthopaedic Surgery
DX: M53.86 Other specified dorsopathies, lumbar region (principal)
CPT/HCPCS: 72148

== ENCOUNTER → 2021-08-22 08:54 | Outpatient (BNVA) | payer MEDICARE, MEDICAID, SELFPAY | PROVIDERS: PCP Internal Medicine; Visit Provider Physician Assistant | DX: M25.551 Pain in right hip (principal); M25.552 Pain in left hip | CPT/HCPCS: 99213; 99999 ==

== ENCOUNTER → 2021-08-24 09:28 | Outpatient (BNVA) | payer MEDICARE, MEDICAID, SELFPAY | PROVIDERS: PCP Internal Medicine; Visit Provider Anesthesiology Pain Medicine | DX: M47.27 Other spondylosis with radiculopathy, lumbosacral region (principal); M47.22 Other spondylosis with radiculopathy, cervical region; M79.605 Pain in left leg; M25.551 Pain in right hip; M25.552 Pain in left hip; G56.03 Carpal tunnel syndrome, bilateral upper limbs; M35.00 Sjogren syndrome, unspecified; F17.210 Nicotine dependence, cigarettes, uncomplicated; Z79.891 Long term (current) use of opiate analgesic | CPT/HCPCS: 99214 ==

== ENCOUNTER → 2021-08-30 15:04 | Outpatient (BNVA) | payer MEDICARE, MEDICAID, SELFPAY | PROVIDERS: PCP Internal Medicine; Visit Provider Internal Medicine Rheumatology | DX: M35.00 Sjogren syndrome, unspecified (principal); M06.00 Rheumatoid arthritis without rheumatoid factor, unspecified site; Z79.899 Other long term (current) drug therapy; M25.551 Pain in right hip; M25.552 Pain in left hip; I10 Essential (primary) hypertension; E06.3 Autoimmune thyroiditis; E78.5 Hyperlipidemia, unspecified; G47.33 Obstructive sleep apnea (adult) (pediatric); G57.10 Meralgia paresthetica, unspecified lower limb; Z71.89 Other specified counseling; F17.210 Nicotine dependence, cigarettes, uncomplicated | CPT/HCPCS: 99214 ==

== ENCOUNTER → 2021-09-21 11:20 | Outpatient (BNVA) | payer MEDICARE, MEDICAID, SELFPAY | PROVIDERS: PCP Internal Medicine; Visit Provider Anesthesiology Pain Medicine | DX: M47.22 Other spondylosis with radiculopathy, cervical region (principal); M47.27 Other spondylosis with radiculopathy, lumbosacral region; M79.605 Pain in left leg; M25.551 Pain in right hip; M25.552 Pain in left hip; G56.03 Carpal tunnel syndrome, bilateral upper limbs; M35.00 Sjogren syndrome, unspecified; F17.210 Nicotine dependence, cigarettes, uncomplicated; Z79.891 Long term (current) use of opiate analgesic | CPT/HCPCS: 99214 ==

== ENCOUNTER → 2021-10-18 10:57 | Outpatient (BNVA) | payer MEDICARE, MEDICAID, SELFPAY | PROVIDERS: PCP Internal Medicine; Visit Provider Anesthesiology Pain Medicine | DX: M47.22 Other spondylosis with radiculopathy, cervical region (principal); M47.27 Other spondylosis with radiculopathy, lumbosacral region; M79.605 Pain in left leg; M25.551 Pain in right hip; M25.552 Pain in left hip; G56.03 Carpal tunnel syndrome, bilateral upper limbs; M35.00 Sjogren syndrome, unspecified; F17.210 Nicotine dependence, cigarettes, uncomplicated; Z79.891 Long term (current) use of opiate analgesic | CPT/HCPCS: 99214 ==

== ENCOUNTER → 2021-11-13 11:14 | Outpatient (BNVA) | payer MEDICARE, MEDICAID, OTHER, SELFPAY | PROVIDERS: PCP Internal Medicine; Visit Provider Anesthesiology Pain Medicine | DX: M47.22 Other spondylosis with radiculopathy, cervical region (principal); M47.27 Other spondylosis with radiculopathy, lumbosacral region; M79.605 Pain in left leg; M25.551 Pain in right hip; M25.552 Pain in left hip; G56.03 Carpal tunnel syndrome, bilateral upper limbs; M35.00 Sjogren syndrome, unspecified; F17.210 Nicotine dependence, cigarettes, uncomplicated; Z79.891 Long term (current) use of opiate analgesic | CPT/HCPCS: 99214 ==

== ENCOUNTER 2021-11-23 11:07 | Outpatient (CLI) | payer MEDICARE, MEDICAID, SELFPAY ==
[2021-11-23 11:34] LABS: Basophils # 0.1 10^3/uL (0.0-0.1); Basophils % 1.9 %; Eosinophils # 0.5 10^3/uL (0.0-0.8); Eosinophils % 7.2 %; Hematocrit 43.4 % (37.0-47.0); Hemoglobin 14.9 g/dL (11.5-15.3); Lymphocytes % 29.8 %; Mean Corpuscular HGB Conc 34.3 g/dL (30.0-36.0); Mean Corpuscular Hemoglobin 31.1 pg (28.0-34.0); Mean Corpuscular Volume 90.6 fl (81-99); Mean Platelet Volume 11.9 fL (7.4-10.4); Monocytes # 0.8 10^3/uL (0.2-0.9); Monocytes % 11.8 %; Neutrophils # 3.35 10^3/uL (1.8-7.7); Nucleated Red Blood Cells % 0 %; Platelet Count 218 10^3/cmm (130-400); Red Blood Count 4.79 10^6/uL (4.1-5.3); White Blood Count 6.8 10^3/uL (4.0-10.0)
[2021-11-23 11:55] LABS: Alanine Aminotransferase 20 U/L (0-33); Albumin Level 4.2 g/dL (3.5-5.2); Alkaline Phosphatase 166 IU/L (35-105); C Reactive Protein 11.9 mg/L (0.0-4.9); Globulin 3.3 g/dL (1.3-4.6); Glomerular Filtration Rate 64.3 mL/min (90-130); Total Bilirubin 0.6 mg/dL (0.15-1.2); Total Protein 7.5 g/dL (6.6-8.7)
[2021-11-23 11:56] LABS: Aspartate Amino Transferase 35 U/L (0-32)
== END 2021-11-23 11:08 | disposition home or self-care (01) ==
LOC: LAB 11:11
PROVIDERS: PCP Internal Medicine; Visit Provider Internal Medicine Rheumatology
DX: M06.00 Rheumatoid arthritis without rheumatoid factor, unspecified site (principal); Z79.899 Other long term (current) drug therapy
CPT/HCPCS: 36415; 80076; 82565; 85025; 86140

== ENCOUNTER → 2021-11-29 16:41 | Outpatient (BNVA) | payer MEDICARE, MEDICAID, SELFPAY | PROVIDERS: PCP Internal Medicine; Visit Provider Emergency Medicine | DX: N39.0 Urinary tract infection, site not specified (principal); R39.9 Unspecified symptoms and signs involving the genitourinary system | CPT/HCPCS: 81000 ==

== ENCOUNTER → 2021-12-14 10:56 | Outpatient (BNVA) | payer MEDICAID, SELFPAY | PROVIDERS: PCP Internal Medicine; Visit Provider Anesthesiology Pain Medicine | DX: F17.210 Nicotine dependence, cigarettes, uncomplicated (principal); M47.22 Other spondylosis with radiculopathy, cervical region; M79.605 Pain in left leg; M25.551 Pain in right hip; M25.552 Pain in left hip; G56.03 Carpal tunnel syndrome, bilateral upper limbs; M47.27 Other spondylosis with radiculopathy, lumbosacral region; M35.00 Sjogren syndrome, unspecified; Z79.891 Long term (current) use of opiate analgesic | CPT/HCPCS: 99214 ==

== ENCOUNTER 2021-12-18 13:01 | Emergency (ER) | payer MEDICARE, MEDICAID, SELFPAY ==
[2021-12-18 13:23] VITALS: BP 142/77; PULSE 78; RESP 16; TEMP 36.6; O2SAT 95; BMI 36.2
--- NOTE | 2021-12-18 14:19 | PC.NURSE ---
pt reports diarrhea since Saturday and nausea when having bowel movements. Pt reports a low grade fever. Pt reports she started on cymbalta on Saturday. Pt denies abdominal pain or vomiting. Pt respirations even and unlabored. Lung sounds clear bilat. Bowel sounds present. Abdomen soft and appears nontender to palpation
--- NOTE | 2021-12-18 14:29 | W.ED.NAVMDI ---
HPI - Nausea/Vomiting/Diarrhea General: Chief complaint: Nausea/Vomiting/Diarrhea Stated complaint: fever n/v/d Time Seen by Provider: 12/18/21 14:01 Source: patient Mode of arrival: ambulatory Limitations: no limitations History of Present Illness: 56-year-old female presents emergency room complaining of low-grade fever nausea and diarrhea for the last couple of days some lightheadedness. She not had any hematochezia melena hematemesis cough cramps no dysuria urgency or frequency very minimal abdominal discomfort mild cramping at its worst. Its been over a month since she has been on any antibiotics. MD elicited complaint: nausea and diarrhea Onset (ago): day(s) (3) Description of diarrhea: semi-solid Associated nausea: Yes Associated abdominal pain: No Location of pain: None Exacerbating factors: none Relieving factors: none Associated symtoms: Reports nausea and weakness; Denies altered mental status, anxiety, bloating, change in vision, chest pain, cough, diaphoresis, decreased urine output, dizziness, dysuria, epistaxis, fatigue, fecal incontinence, fevers/chills, headache(s), anorexia, malaise, myalgias, numbness, palpitations, rash, short of breath, syncope, tenesmus or tinnitus Review of Systems Const: Denies: fever(s), chills, fatigue, malaise or diaphoresis Eyes: Denies: change in vision ENMT: Denies: throat pain, tinnitus or epistaxis Card: Denies: chest pain, palpitations or syncope Resp: Denies: dyspnea, productive cough or non-productive cough GI: Reports: abdominal pain, nausea and diarrhea; Denies: vomiting, bloating or fecal incontinence : Denies: flank pain, difficulty voiding, dysuria or urinary frequency Neuro: Denies: headache(s) or dizziness Psych: Denies: anxiety PFSH ED PFSH: Medical History Bronchitis Chronic steroid use Encounter for long-term (current) use of NSAIDs Greater trochanteric pain syndrome of both lower extremities High risk medication use Immunization counseling Inflammatory arthritis Long-term current use of opiate analgesic Lumbosacral spondylosis with radiculopathy Meralgia paraesthetica Pain management contract signed Psychiatric care Screen for colon cancer Seronegative rheumatoid arthritis Sjogren's syndrome Smoker Surgical History History of colonoscopy with polypectomy (~06/2019) History of endometrial ablation History of laparoscopic cholecystectomy 1998 Family History Other Cancer Chronic kidney disease (CKD) Rheumatoid arthritis Denies family history of Diabetes Lupus Systemic lupus erythematosus (SLE) in adult Anesthesia complication Bleeding disorder Hypertension Stroke Social History Smoking and tobacco status: current every day smoker cigarettes Packs smoked per day: 0.5 Alcohol intake: never Adopted: No Caregiver/support person: Yes Lives independently: Yes Household members: spouse Housing: House Highest education level completed: High School Graduate service: No Current occupational exposures/hazards: No Pets and animals: No History of recent travel: No Sexually active: No Current gender identity: Female Maral/Scientology: Presybeterian Special maral needs: No Agree to transfusion: No Financial difficulty paying for basics: Decline to Answer Physical Exam Const: EXAM LIMITATIONS: no altered mental status GENERAL APPEARANCE: cooperative and comfortable ORIENTATION/CONSCIOUSNESS: Yes awake, Yes oriented to person, Yes oriented to place and Yes oriented to time HENMT: COMMON NORMALS: normocephalic, atraumatic and hearing grossly normal bilaterally HEAD & SCALP: normocephalic and atraumatic Resp: COMMON NORMALS: normal respiratory effort, No retractions, No use of accessory muscles and clear to auscultation bilaterally AUSCULTATION: clear to auscultation bilaterally Cardio: COMMON NORMALS: regular rate, regular rhythm and No murmurs present (Cardio) RATE: regular rate RHYTHM: regular rhythm GI: COMMON NORMALS: Soft to palpation and No hepatosplenomegaly present AUSCULTATION: Yes normoactive bowel sounds PALPATION: Yes Soft to palpation, No Tenderness to palpation present (GI), No Guarding due to palpation present (GI) and Yes No hepatosplenomegaly present Extremity: COMMON NORMALS: normal to inspection, capillary refill normal, no clubbing, cyanosis or edema, no calf tenderness and no pedal edema Neuro: SENSORIUM/ORIENTATION: Yes oriented to person, Yes oriented to place and Yes oriented to time Skin: COMMON NORMALS: no rashes or lesions noted GENERAL SKIN EXAM: no rashes or lesions noted Course Vital Signs: Vital signs: Vital Signs Temperature 97.8 F 08/22/22 13:23 Pulse Rate 78 12/18/21 13:23 Respiratory Rate 16 12/18/21 13:23 Blood Pressure 142/77 12/18/21 13:23 Pulse Oximetry 95 12/18/21 13:23 Oxygen Delivery Me thod 12/18/21 13:23 MDM - Nausea/Vomiting/Diarrhea Medical Decision Making Electrolytes normal, exam unremarkable, no peritoneal signs no guarding or rebound nonacute abdomen on exam. Recommend clear liquid diet advance as tolerated if persists or has bleeding recheck. Medical Records I reviewed the patient's medical records. Lab Data I reviewed the patient's lab results. : 12/18/21 14:25 Laboratory Results Sodium 136 mmol/L (136-145) 12/18/21 14:25 Potassium 3.2 mmol/L (3.5-5.1) L 12/18/21 14:25 Chloride 100 mmol/L (98-107) 12/18/21 14:25 Carbon Dioxide 21 mmol/L (22-29) L 12/18/21 14:25 Anion Gap 18.2 (5-19) 12/18/21 14:25 BUN 9 mg/dL (6-20) 12/18/21 14:25 Creatinine 0.8 mg/dL (0.5-0.9) 12/18/21 14:25 GFR Calculation 73.7 mL/min (90-130) L 12/18/21 14:25 Glucose 105 mg/dL (65-115) 12/18/21 14:25 Calculated Osmolality 281 mOsm/kg (285-295) L 12/18/21 14:25 Calcium 9.4 mg/dL (8.5-10.5) 12/18/21 14:25 Discharge Plan Discharge Patient Disposition: Home Clinical Impression: Diarrhea Condition: Stable Prescriptions: No Action (DME) Sole Supports See Rx Instructions .ROUTE .MEDSUPPLY Qty: 1 0RF Rx Instructions: As directed pantoprazole 40 mg tablet,delayed release (DR/EC) 40 mg PO DAILY Qty: 90 1RF prednisone 10 mg tablet See Rx Instructions PO .COMPLEX Qty: 30 1RF Rx Instructions: take 1-2 tab daily for 4-5 days prn joint pain flare PO; loratadine 10 mg tablet 10 mg PO BEDTIME duloxetine [Cymbalta] 30 mg capsule,delayed release(DR/EC) 30 mg PO DAILY Qty: 30 0RF phenazopyridine [Pyridium] 200 mg tablet 200 mg PO Q8H PRN (Reason: pain) Qty: 9 0RF pregabalin 100 mg capsule 100 mg PO TID 30 Days Qty: 90 1RF Enbrel Mini 50 mg/mL (1 mL) cartridge See Rx Instructions .ROUTE .COMPLEX Qty: 4 3RF Dose Instruction: inject 50mcg SUBCUTANEOUSLY every week Rx Instructions: inject 50mcg SUBCUTANEOUSLY every week ON SATURDAY levothyroxine 125 mcg Tablet 125 mcg PO DAILY hydrocodone-acetaminophen 5-325 mg tablet 1 tab PO DAILY PRN (Reason: pain) Rx Instructions: may feel 30 days after previous refill. leflunomide 10 mg tablet 10 mg PO DAILY hydroxychloroquine 200 mg Tablet 200 mg PO BID Discharge Orders: Discharge ED (Routine); Ordered 12/18/21 Ordered By: Major Dawkins Referrals: Wilmer Cabrera DO [Primary Care Provider] - Patient Instructions: Opioid Safety Activity Restrictions/Additional Instructions: Recommend clear liquid diet for the next 24 to 48 hours. You may then advance diet as tolerated. Recheck with primary care doctor if symptoms persist or worsen. If you have any bright red blood per rectum return to the emergency room. 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
[2021-12-18 14:51] LABS: Anion Gap 18.2 (5-19); Blood Urea Nitrogen 9 mg/dL (6-20); Calcium 9.4 mg/dL (8.5-10.5); Carbon Dioxide 21 mmol/L (22-29); Chloride 100 mmol/L (98-107); Glomerular Filtration Rate 73.7 mL/min (90-130); Glucose 105 mg/dL (65-115); Osmolality Calculated 281 mOsm/kg (285-295); Potassium 3.2 mmol/L (3.5-5.1); Sodium 136 mmol/L (136-145)
== END 2021-12-18 16:24 | disposition home or self-care (01) ==
PROVIDERS: Emergency Provider Family Medicine; PCP Internal Medicine
DX: R19.7 Diarrhea, unspecified (principal); F17.210 Nicotine dependence, cigarettes, uncomplicated
CPT/HCPCS: 36415; 80048; 99283

== ENCOUNTER → 2022-01-03 13:04 | Outpatient (BNVA) | payer MEDICARE, MEDICAID, SELFPAY | PROVIDERS: PCP Internal Medicine; Visit Provider Internal Medicine Rheumatology | DX: M35.00 Sjogren syndrome, unspecified (principal); M06.00 Rheumatoid arthritis without rheumatoid factor, unspecified site; Z71.89 Other specified counseling; G57.10 Meralgia paresthetica, unspecified lower limb; R19.7 Diarrhea, unspecified; G56.03 Carpal tunnel syndrome, bilateral upper limbs; E06.3 Autoimmune thyroiditis; E78.5 Hyperlipidemia, unspecified; M47.894 Other spondylosis, thoracic region; I10 Essential (primary) hypertension; G47.33 Obstructive sleep apnea (adult) (pediatric) | CPT/HCPCS: 99214 ==

== ENCOUNTER → 2022-01-11 10:37 | Outpatient (BNVA) | payer MEDICARE, MEDICAID, SELFPAY | PROVIDERS: PCP Internal Medicine; Visit Provider Anesthesiology Pain Medicine | DX: M47.27 Other spondylosis with radiculopathy, lumbosacral region (principal); M79.605 Pain in left leg; M47.22 Other spondylosis with radiculopathy, cervical region; M25.551 Pain in right hip; M25.552 Pain in left hip; G56.03 Carpal tunnel syndrome, bilateral upper limbs; M35.00 Sjogren syndrome, unspecified; F17.210 Nicotine dependence, cigarettes, uncomplicated | CPT/HCPCS: 99213 ==

== ENCOUNTER → 2022-04-12 10:04 | Outpatient (BNVA) | payer MEDICARE, MEDICAID, SELFPAY | PROVIDERS: PCP Internal Medicine; Visit Provider Anesthesiology Pain Medicine | DX: M47.27 Other spondylosis with radiculopathy, lumbosacral region (principal); M47.22 Other spondylosis with radiculopathy, cervical region; M79.605 Pain in left leg; M25.551 Pain in right hip; M25.552 Pain in left hip; G56.03 Carpal tunnel syndrome, bilateral upper limbs; M35.00 Sjogren syndrome, unspecified | CPT/HCPCS: 99213 ==

== ENCOUNTER 2022-05-07 09:25 | Outpatient (CLI) | payer MEDICARE, MEDICAID, SELFPAY ==
--- NOTE | 2022-05-07 09:28 | MM_ITS ---
WS: [id number] BILATERAL 3D TOMOSYNTHESIS DIGITAL SCREENING MAMMOGRAPHY WITH CAD CLINICAL INFORMATION: SCREENING HISTORY: Screening mammogram. No current complaints. COMPARISON: 2020 TECHNIQUE: Bilateral CC and MLO views. FINDINGS: Scattered fibroglandular densities bilaterally. A few incidental punctate calcifications. No suspicio us focal mass, asymmetry, calcifications, or architectural distortion. No evidence of malignancy. MM/[place] [id number] IMPRESSION: BI-RADS: 2-Benign FOLLOW UP: 1 Year Follow-up Recommend return to annual screening mammography.
== END 2022-05-07 09:26 | disposition home or self-care (01) ==
LOC: RAD 09:26
PROVIDERS: PCP Internal Medicine; Visit Provider Nurse Practitioner Family
DX: Z12.31 Encounter for screening mammogram for malignant neoplasm of breast (principal); Z78.0 Asymptomatic menopausal state; M85.88 Other specified disorders of bone density and structure, other site
CPT/HCPCS: 77063; 77067; 77080

== ENCOUNTER 2022-05-07 09:25 | Outpatient (CLI) | payer MEDICARE, MEDICAID, SELFPAY ==
--- NOTE | 2022-05-07 09:29 | XR_ITS ---
WS: [id number] SCREENING DEXA SCAN [place] CLINICAL INFORMATION: POSTMENOPAUSAL COMPARISON: None. FINDINGS: The L1-L4 bone mineral density measures 1.002 g/cm2. This corresponds to a T score score of -1.5 and Z score of -1.1. Left femoral neck bone mineral density measures 0.888 g/cm2. This corresponds to a T score of -1.0 an d Z score of -0.6. Right femoral neck bone mineral density measures 0.843 g/cm2. This corresponds to a T score -1.3of an d Z score of -1.0. Mean femoral neck bone mineral density measures 0.866 g/cm2. This corresponds to a T score of -1.1 an d Z score of -0.8. XR/XR DEXA axial skeleton* [id number] IMPRESSION: Osteopenia lumbar spine. Osteopenia femoral necks. Patient's FRAX calculated 10 year probability for major osteoporotic fracture i s 10.7 % and osteoporotic hip fracture is 2.1%.
== END 2022-05-07 09:26 | disposition home or self-care (01) ==
LOC: RAD 09:26
PROVIDERS: PCP Internal Medicine; Visit Provider Nurse Practitioner Family
DX: Z78.0 Asymptomatic menopausal state (principal); M85.88 Other specified disorders of bone density and structure, other site
CPT/HCPCS: 77080

== ENCOUNTER → 2022-06-21 10:47 | Outpatient (BNVA) | payer MEDICARE, MEDICAID, SELFPAY | PROVIDERS: PCP Internal Medicine; Visit Provider Internal Medicine Rheumatology | DX: M06.00 Rheumatoid arthritis without rheumatoid factor, unspecified site (principal); Z71.89 Other specified counseling; G57.10 Meralgia paresthetica, unspecified lower limb; R19.7 Diarrhea, unspecified; I10 Essential (primary) hypertension; E78.5 Hyperlipidemia, unspecified; M47.894 Other spondylosis, thoracic region | CPT/HCPCS: 99214 ==

== ENCOUNTER → 2022-07-24 11:02 | Outpatient (BNVA) | payer MEDICARE, MEDICAID, SELFPAY | PROVIDERS: PCP Internal Medicine; Visit Provider Anesthesiology Pain Medicine | DX: M54.50 Low back pain, unspecified (principal); M47.27 Other spondylosis with radiculopathy, lumbosacral region; M47.22 Other spondylosis with radiculopathy, cervical region; M79.605 Pain in left leg; M25.552 Pain in left hip; M25.551 Pain in right hip; G56.03 Carpal tunnel syndrome, bilateral upper limbs; M35.00 Sjogren syndrome, unspecified | CPT/HCPCS: 99214 ==

== ENCOUNTER 2022-08-15 09:20 | Outpatient (CLI) | payer MEDICARE, MEDICAID, SELFPAY ==
--- NOTE | 2022-08-15 09:30 | MR_ITS ---
WS: [id number] MRI LUMBAR SPINE NONCONTRAST TECHNIQUE: Sagittal T1, T2 and STIR imaging. Axial T1 and T2 imaging. CLINICAL INFORMATION: M54.16 - Radiculopathy, lumbar region COMPARISON: MRI [address] 2016 FINDINGS: Mild lumbar curve. No acute compression. No high-grade central canal stenosis. Slight anterolisthesis L4 on L5. Small benign-appearing focus of calcification at the L3-L4 level in the dorsal sac is unch anged. Additional T1 hyperintense incidental fatty filum. Focus of calcification best appreciated on the prior CT L1-L2: Normal. L2-L3: No significant disc bulging. Mild facet arthropathy. Spinal canal and foramen are patent. L3-L4: No significant disc bulging. Mild facet arthropathy. Spinal canal and foramen are patent. L4-L5: Mild annular bulging. Moderate LEFT facet arthropathy. Spinal canal and foramen are patent. L5-S1: No significant disc bulging. Mild facet arthropathy. Spinal canal and foramen are patent. Visualized pelvic bony structures: Normal. Paravertebral soft tissues: Normal MR/MR lumbar spine wo con* [id number] IMPRESSION: 1. Mild lumbar curve. No acute compression. Slight anterolisthesis L4 on L5. 2. Mild annular bulging L4-L5 with moderate LEFT facet arthropathy. Spinal can al and foramen are patent at this level. 3. Mild to moderate facet arthropathy L5-S1. 4. No significant spinal canal or foraminal narrowing. 5. Small benign-appearing focus of calcification at the L3-L4 level in the paula cyndi sac is unchanged. Additional T1 hyperintense incidental fatty filum.
== END 2022-08-15 09:21 | disposition home or self-care (01) ==
LOC: RAD 09:24
PROVIDERS: PCP Nurse Practitioner Family; Visit Provider Anesthesiology Pain Medicine
DX: M43.8X6 Other specified deforming dorsopathies, lumbar region (principal); M51.36 Other intervertebral disc degeneration, lumbar region; M47.817 Spondylosis without myelopathy or radiculopathy, lumbosacral region
CPT/HCPCS: 72148; 99214

== ENCOUNTER → 2022-09-20 10:11 | Outpatient (BNVA) | payer MEDICARE, MEDICAID, SELFPAY | PROVIDERS: PCP Nurse Practitioner Family; Visit Provider Internal Medicine Rheumatology | DX: M06.00 Rheumatoid arthritis without rheumatoid factor, unspecified site (principal); Z71.89 Other specified counseling; Z79.899 Other long term (current) drug therapy; M35.00 Sjogren syndrome, unspecified; G57.10 Meralgia paresthetica, unspecified lower limb; R19.7 Diarrhea, unspecified | CPT/HCPCS: 36415; 80076; 82565; 83735; 84132; 85025; 86140; 99214 ==

== ENCOUNTER → 2022-10-24 11:30 | Outpatient (BNVA) | payer MEDICAID, SELFPAY | PROVIDERS: PCP Nurse Practitioner Family; Visit Provider Anesthesiology Pain Medicine | DX: M79.671 Pain in right foot (principal) | CPT/HCPCS: 73630 ==

== ENCOUNTER → 2022-12-24 09:48 | Outpatient (BNVA) | payer MEDICARE, MEDICAID, SELFPAY | PROVIDERS: PCP Nurse Practitioner Family; Visit Provider Anesthesiology Pain Medicine | DX: G56.03 Carpal tunnel syndrome, bilateral upper limbs (principal); M47.27 Other spondylosis with radiculopathy, lumbosacral region; M47.22 Other spondylosis with radiculopathy, cervical region; M79.605 Pain in left leg; M54.50 Low back pain, unspecified | CPT/HCPCS: 99214 ==

== ENCOUNTER 2023-02-14 06:56 | Day surgery (SDC) | payer MEDICARE, MEDICAID, SELFPAY ==
[2023-02-14] VITALS (8 sets, daily range): BP systolic 120–170; BP diastolic 64–82; PULSE 63–87; RESP 13–18; TEMP 36.1; O2SAT 92–98; BMI 32.4
[2023-02-14] MEDS: sodium chloride 0.9% 1,000 ML 30 ML IV (07:52)
[2023-02-14] MEDS: ketorolac 30 mg/mL INJ IVP (07:52)
[2023-02-14] MEDS: acetaminophen 1,000 MG/100 ML PIGGYBACK 400 MG IV (07:53)
--- NOTE | 2023-02-14 08:38 | ANES.PREANE2 ---
Pre-Anesthetic Assessment Height/Weight: Height 1.63 m Weight 85.729 kg Temp Pulse Resp BP Pulse Ox O2 Del Method 97 F L 63 18 170/82 98 Room Air 02/14/23 07:21 02/14/23 07:21 02/14/23 07:21 02/14/23 07:21 02/14/23 07:21 02/14/23 07:21 Preop Diagnosis: Right carpal Tunnel syndrome, right cubital tunnel syndrome Operation Date: 02/14/23 08:40 Proposed Procedures p Carpal Tunnel Release(Right) - Quinten Stillwater, DO s Cubital Tunnel Release w possible ulnar nerve transposition(Right) - Quinten Stillwater, DO Familial anesthetic complications: None Was Beta Romero taken within 24 hours: N/A Was Clonidine taken within 24 hours: N/A Last intake: Intake Last Liquid Date 02/13/23 Last Liquid Time 22:00 Last Solid Date 02/06/23 Last Solid Time 18:00 Social No alcohol and No tobacco Exam alert, oriented x 3, clear to auscultation bilaterally and regular rate & rhythm Airway Dentition: full Pulmonary None reported HX bronchititis Metabolic Morbid Obesity and Thyroid Disease [facility] Rheumatoid Arthritis sjogren's PRN steroid use, last use was a couple of months ago, states she only took one pill Anesthetic Plan ASA status: 3 Anesthesia: MAC Risk of > 500 ml blood loss (7ml/kg in children): No Medications/Allergies Home Medications Medication Instructions Recorded Confirmed Last Taken Type loratadine 10 mg tablet 10 mg PO BEDTIME 06/09/19 02/14/23 1 Day Ago History ~02/13/23 Sole Supports #1 ea 09/22/19 01/29/23 Unknown Rx phenazopyridine 200 mg tablet 200 mg PO Q8H PRN pain #9 tabs 11/29/21 02/14/23 1 Day Ago Rx (Pyridium) ~02/13/23 levothyroxine 112 mcg capsule 75 mcg PO DAILY 04/12/22 02/13/23 Unknown History duloxetine 30 mg capsule,delayed 30 mg PO BID pain #60 caps 12/24/22 02/13/23 Unknown Rx release (Cymbalta) adalimumab 40 mg/0.8 mL See Rx Instructions SUBCUT 01/16/23 02/14/23 1 Day Ago Rx subcutaneous syringe kit (Humira) .COMPLEX #2 ea ~02/13/23 hydroxychloroquine 200 mg tablet See Rx Instructions .Route 01/16/23 02/13/23 Unknown Rx .COMPLEX #60 tabs leflunomide 20 mg tablet 20 mg PO DAILY #30 tabs 01/16/23 02/13/23 Unknown Rx prednisone 10 mg tablet See Rx Instructions PO .COMPLEX 01/16/23 02/14/23 1 Day Ago Rx joint pain #30 tabs ~02/13/23 pantoprazole 40 mg tablet,delayed 40 mg PO DAILY 02/13/23 02/14/23 1 Day Ago History release ~02/13/23 pregabalin 100 mg capsule (Lyrica) 100 mg PO TID 02/13/23 02/14/23 1 Day Ago History ~02/13/23 Allergies Allergy/AdvReac Type Severity Reaction Status Date / Time Penicillins Allergy HIVES Verified 02/14/23 07:09 Sulfa (Sulfonamide Allergy HIVES Verified 02/14/23 07:09 Antibiotics) [facility] Allergy HIVES Verified 02/14/23 07:09 Current Medications Generic Name Dose Route Start Last Admin Trade Name Freq PRN Reason Stop Dose Admin Sodium Chloride 1,000 mls @ 30 mls/hr 02/14/23 07:15 02/14/23 07:52 Sodium Chloride 0.9% IV 02/15/23 07:14 30 mls/hr .Q24H CADEN Administration PFSH Anesthesia Medical History Bronchitis Chronic steroid use Diarrhea in adult patient Encounter for long-term (current) use of NSAIDs Greater trochanteric pain syndrome of both lower extremities High risk medication use Immunization counseling Inflammatory arthritis Long-term current use of opiate analgesic Lumbosacral spondylosis with radiculopathy Meralgia paraesthetica Pain management contract signed Psychiatric care Screen for colon cancer Seronegative rheumatoid arthritis Sjogren's syndrome Smoker Surgical History History of colonoscopy with polypectomy (~06/2019) History of endometrial ablation History of laparoscopic cholecystectomy 1998 Family History Other Cancer Chronic kidney disease (CKD) Rheumatoid arthritis Denies family history of Diabetes Lupus Systemic lupus erythematosus (SLE) in adult Anesthesia complication Bleeding disorder Hypertension Stroke Social History Smoking and tobacco/nicotine status: current every day tobacco/nicotine user (less than 1/2PPD) cigarettes Packs smoked per day: 0.5 Alcohol intake: never Substance/Drug Use: never Adopted: No Caregiver/support person: Yes Lives independently: Yes Household members: spouse Housing: House Highest education level completed: High School Graduate service: No Current occupational exposures/hazards: No Pets and animals: No Sexually active: No Do you think of yourself as: Straight/Heterosexual Current gender identity: Female Maral/Christian: Adventist Special maral needs: No Agree to transfusion: No Data Anesthesia Cardiac Studies: No Data to Display
--- NOTE | 2023-02-14 08:59 | W.PM.OPSUD ---
Surgery/Procedure H&P Update DATE OF PROCEDURE: February 14, 2023 DATE H&P PERFORMED: 01/29/23 H&P UPDATE INFORMATION: I have reviewed H&P completed within last 30 days, I have examined patient prior to procedure and No changes to prior documentation PREOP DIAGNOSIS: Right carpal Tunnel syndrome, right cubital tunnel syndrome PRIMARY INDICATION FOR PROCEDURE: Right carpal tunnel syndrome, right cubital tunnel syndrome PLANNED PROCEDURE: Operation Date: 02/14/23 08:40 Proposed Procedures p Carpal Tunnel Release(Right) - Quinten Velasquez DO s Cubital Tunnel Release w possible ulnar nerve transposition(Right) - Quinten Velasquez DO
[2023-02-14] MEDS: ceFAZolin 2,000 MG in sodium chloride 0.9% (plus) 50 ML 100 MG IV (09:16)
[2023-02-14] MEDS: ROPivacaine 0.5% SDV 30 mL 50 MG INJECTION (10:22)
[2023-02-14] MEDS: lidocaine 2% INJ 20 mL 5 ML INJECTION (10:23)
[2023-02-14] MEDS: lidocaine-epi 2% 20 mL INJ 5 ML INJECTION (10:24)
--- NOTE | 2023-02-14 10:42 | P.BOP_ITS ---
Date of Procedure: 02/14/2023 Surgeon: Quinten Velasquez DO Clay Preparation Supervisor(s): None Procedure(s) performed: Right carpal tunnel release Right cubital tunnel release (ulnar nerve decompression at the elbow) Findings of the procedure(s): Right carpal tunnel syndrome right cubital tunnel syndrome procedure went as planned with right carpal tunnel release and right cubital tunnel release Estimated blood loss: 5 cc Specimen(s) removed: None Post-operative diagnosis: Right carpal tunnel syndrome, right cubital tunnel syndrome
--- NOTE | 2023-02-14 10:45 | PM.OP ---
Operative Report Date of procedure: February 14, 2023 Pre-op diagnosis: Right carpal tunnel syndrome, right cubital tunnel syndrome Surgeon: Quinten Velasquez DO Procedure: Postop Diagnosis: Same Procedure done: Right?carpal?tunnel release Right?cubital tunnel tunnel release (ulnar nerve decompression at elbow) Surgeon: Quinten Velasquez DO Estimated blood loss: 5 mL Tourniquet? 28 minutes IV fluids: 400 mL Complications: None Findings: See operative report narrative Condition: stable Disposition: same day Brief History: Patient's been seen and worked up in the outpatient setting and findings consistent with preoperative diagnosis.? Patient has right?carpal?tunnel syndrome as well as right?cubital tunnel syndrome which has been worked up in the outpatient setting has physical exam findings consistent with this as well as confirmatory nerve conduction/EMG nerve conduction study consistent with diagnosis And clinical findings consistent with right cubital tunnel syndrome.? Patient's failed conservative treatment.? As result through shared decision making agreed to proceed with? right?carpal?tunnel and right?cubital tunnel release we talked about treatment options as far as nonoperative and operative intervention.? Understands risk benefits complication alternatives surgical nonsurgical treatment options.? Understanding his risks he agrees to proceed with surgical intervention. Understanding these risks pt agrees to proceed with surgery.? Consent obtained in office. Procedure: Patient seen evaluate in the preoperative holding area.? Consent was reviewed and signed with patient.? Correct extremity marked.? Patient seen evaluated by anesthesia department once cleared for surgery was then taken back to the operative suite placed in supine position all bony prominences well-padded patient properly secured to bed.? right upper extremity placed onto armboard.? Nonsterile tourniquet applied right upper arm.? Patient then underwent anesthesia per the anesthesia department.? Patient's right upper extremity was then prepped and draped in standard orthopedic fashion.? Final timeout performed.? Patient received appropriate preoperative antibiotics. Esmarch was used exsanguinate the right upper extremity.? Tourniquet was insufflated to 250 mmHg. I started with the?carpal?tunnel release first.? I made a standard open?carpal?tunnel release starting with the distal most extent in the palm at the Porter's cardinal line and the incision line was made in line with the fourth ray and ended just distal to the wrist crease.? Sharp scalpel incision was made through skin and subcutaneous tissue I then utilizing self retainer then began to dissect with dissection scissors split longitudinally the palmar fascia.? Next I then utilizing my information assistant [place] retractors subsequently utilizing scalpel feathered through the palmaris brevis as well as through the transverse?carpal?ligament distally.? Once I encountered the floor of the transverse?carpal?ligament and entered into the?carpal?tunnel I then switched to dissection scissors.? Carefully released the distal extent of the transverse?carpal?ligament to the palmar fat.? Care was to protect the recurrent branch and not injured this during this part of the case.? Next I then placed a [place] underneath the transverse?carpal?ligament proximally to protect the nerve in the?carpal?tunnel contents.? And then I subsequently under loupe magnification utilize my dissection scissors to release the transverse?carpal?ligament into the antebrachial fascia under direct visualization with care to keep my scissors with a curved ulnarly away from the palmar cutaneous branch.? The transverse?carpal?was then completely decompressed proximally and a [place] was then placed both distally and proximally throughout the?carpal?tunnel and had complete decompression of the nerve.? The nerve did appear to have hourglass shape as it went through the?carpal?tunnel.? With significant irritation noted around the nerve.? No masses were noted within the contents of the?carpal?tunnel.? This completed the?carpal?tunnel release and then I subsequently irrigated the wound bed and placed a wet Ray-Maggi into the incision for later closure. Next marked out the landmarks of the right elbow of the medial epicondyle and olecranon and made a curvilinear incision following the course of the ulnar nerve at the medial aspect of the elbow.? Sharp scalpel incision was made through skin and subcutaneous tissue.? Next I switched to Littler dissection scissors and spread in plane of the medial antebrachial cutaneous nerve branching which was protected throughout this part of the dissection.? Then I directly came down over the fascia and identified the 2 heads of the FCU fascia and split this right in the middle and subsequently identified my ulnar nerve distally.? This was then completely released distally under direct visualization and loupe magnification.? Once the nerve was then identified I then subsequently tracked this proximally and released this through Tena's ligament as well as complete decompression of the nerve proximally all the way past the intermuscular septum.? The nerve was completely released and decompressed both proximally and distally.? Ulnar nerve neurolysis performed and completed both proximally and distally with dissection scissors.? I then took the elbow through range of motion and there was no instability or subluxating of the ulnar nerve.? This completed?cubital tunnel release.? ?Next the wound bed was thoroughly irrigated.? Tourniquet was deflated.? Hemostasis was satisfactory at the?cubital tunnel release surgery site. I then inspected the?carpal?tunnel incision and this was found to have satisfactory hemostasis and all this was maintained through bipolar electrocautery.? At this point time I sequentially closed?cubital tunnel site with 3-0 Vicryl suture in a running horizontal mattress nylon stitch.? ? The?carpal?tunnel release surgery was then closed in standard interrupted mattress fashion.? Dressing was Xeroform 4 x 4's ABD Curlex soft roll and an Moises wrap has a bulky soft dressing. Patient was then awakened from anesthesia and taken to PACU in stable condition. Disposition: Patient taken to PACU in stable condition recovering well.? Patient will receive appropriate discharge instructions as well as pain medication postoperatively.? We will follow-up with me in the office in 2 weeks.? Patient understands agrees with current plan.? All questions answered.? Pt understands if any questions or concerns and contact the office for follow-up appointment..
--- NOTE | 2023-02-14 11:05 | ANE.PACU2 ---
Inpatient post-anesthesia follow up: Airway intact: Yes Vital signs: Temperature 97 F Pulse Rate 65 Respiratory Rate 18 Blood Pressure 141/74 Pulse Oximetry 94 Oxygen Delivery Me thod Room Air Oxygen Flow Rate Fraction of Inspir ed Oxygen Hydration adequate: Yes Nausea and vomiting: No Pain level: 1 Mental status: Baseline
[2023-02-14] MEDS: TRAMadol 50 mg Tablet PO (11:23)
== END 2023-02-14 11:45 | disposition home or self-care (01) ==
PROVIDERS: PCP Nurse Practitioner Family; Visit Provider Student in an Organized Health Care Education/Training Program
PROC: (CPT 64721; principal; 2023-02-14 08:30)
PROC: (CPT 64718; 2023-02-14 08:30)
DX: G56.01 Carpal tunnel syndrome, right upper limb (principal); G56.22 Lesion of ulnar nerve, left upper limb; E66.01 Morbid (severe) obesity due to excess calories; Z68.32 Body mass index [BMI] 32.0-32.9, adult; M06.9 Rheumatoid arthritis, unspecified; Z79.52 Long term (current) use of systemic steroids; M35.00 Sjogren syndrome, unspecified; F17.210 Nicotine dependence, cigarettes, uncomplicated
CPT/HCPCS: 64718; 64721; J0131; J0690; J1100; J1885; J2405; J2704; J2795; J3010; J7030

== ENCOUNTER → 2023-02-21 10:48 | Outpatient (BNVA) | payer MEDICARE, MEDICAID, SELFPAY | PROVIDERS: PCP Nurse Practitioner Family; Visit Provider Anesthesiology Pain Medicine | DX: M54.50 Low back pain, unspecified (principal); M79.605 Pain in left leg | CPT/HCPCS: 99212; 99213 ==

== ENCOUNTER 2023-03-05 12:59 | Outpatient (CLI) | payer MEDICARE, MEDICAID, SELFPAY ==
[2023-03-07 16:18] LABS: Quantiferon Mitogen 9.95 IU/mL; Quantiferon Nil 0.03 IU/mL; Quantiferon TB Gold NEGATIVE (NEGATIVE)
== END 2023-03-05 13:00 | disposition home or self-care (01) ==
LOC: LAB 12:59
PROVIDERS: PCP Nurse Practitioner Family; Visit Provider Internal Medicine Rheumatology
DX: Z11.1 Encounter for screening for respiratory tuberculosis (principal)
CPT/HCPCS: 36415; 86480

== ENCOUNTER → 2023-03-07 14:47 | Outpatient (BNVA) | payer MEDICARE, MEDICAID, SELFPAY | PROVIDERS: PCP Nurse Practitioner Family; Visit Provider Physician Assistant | DX: Z98.890 Other specified postprocedural states (principal) | CPT/HCPCS: 99024 ==

== ENCOUNTER → 2023-04-02 14:37 | Outpatient (BNVA) | payer MEDICARE, MEDICAID, SELFPAY | PROVIDERS: PCP Nurse Practitioner Family; Visit Provider Physician Assistant | DX: G56.22 Lesion of ulnar nerve, left upper limb (principal); G56.03 Carpal tunnel syndrome, bilateral upper limbs | CPT/HCPCS: 99214 ==

== ENCOUNTER → 2023-04-03 10:23 | Outpatient (BNVA) | payer MEDICARE, MEDICAID, SELFPAY | PROVIDERS: PCP Nurse Practitioner Family; Visit Provider Internal Medicine Rheumatology | DX: Z79.899 Other long term (current) drug therapy (principal); M06.00 Rheumatoid arthritis without rheumatoid factor, unspecified site; Z71.89 Other specified counseling; G57.10 Meralgia paresthetica, unspecified lower limb; R19.7 Diarrhea, unspecified | CPT/HCPCS: 36415; 80076; 82565; 85025; 86140; 99214 ==

== ENCOUNTER 2023-05-01 06:26 | Day surgery (SDC) | payer MEDICARE, MEDICAID, SELFPAY ==
[2023-05-01] VITALS (11 sets, daily range): BP systolic 138–184; BP diastolic 64–86; PULSE 62–97; RESP 12–21; TEMP 36.1–36.5; O2SAT 94–100; BMI 32.5
[2023-05-01] MEDS: acetaminophen 1,000 MG/100 ML PIGGYBACK 400 MG IV (06:50)
[2023-05-01] MEDS: sodium chloride 0.9% 1,000 ML 30 ML IV (06:50)
[2023-05-01] MEDS: scopolamine 1.5 Patch 1 PATCH TRANSDERMA (06:51)
[2023-05-01] MEDS: ketorolac 30 mg/mL INJ IVP (06:51)
--- NOTE | 2023-05-01 06:58 | W.PM.OPSUD ---
Surgery/Procedure H&P Update DATE OF PROCEDURE: May 01, 2023 DATE H&P PERFORMED: 04/02/23 H&P UPDATE INFORMATION: I have reviewed H&P completed within last 30 days, I have examined patient prior to procedure and No changes to prior documentation PREOP DIAGNOSIS: Left carpal tunnel syndrome, left cubital tunnel syndrome PRIMARY INDICATION FOR PROCEDURE: Left carpal tunnel syndrome, left cubital tunnel syndrome PLANNED PROCEDURE: Operation Date: 05/01/23 08:05 Proposed Procedures p Left Carpal Tunnel Release(Left) - DO noel Doan Left Cubital Tunnel Release(Left) - DO noel Doan Possible left Ulnar Nerve Transposition(Left) - Quinten Velasquez DO
--- NOTE | 2023-05-01 07:22 | ANES.PREANE2 ---
Pre-Anesthetic Assessment Height/Weight: Height 1.63 m Weight 86.183 kg Temp Pulse Resp BP Pulse Ox O2 Del Method 97.0 F L 62 18 184/86 97 Room Air 05/01/23 06:36 05/01/23 06:36 05/01/23 06:36 05/01/23 06:36 05/01/23 06:36 05/01/23 06:37 Preop Diagnosis: Left carpal tunnel syndrome, left cubital tunnel syndrome Operation Date: 05/01/23 08:05 Proposed Procedures p Left Carpal Tunnel Release(Left) - Quinten Eva, DO s Left Cubital Tunnel Release(Left) - Quinten Haywood, DO s Possible left Ulnar Nerve Transposition(Left) - Quinten Eva, DO Familial anesthetic complications: none Was Beta Romero taken within 24 hours: N/A Was Clonidine taken within 24 hours: N/A Last intake: Intake Last Liquid Date 04/30/23 Last Liquid Time 21:00 Last Solid Date 04/30/23 Last Solid Time 17:00 Social Tobacco and No alcohol Exam alert, oriented x 3 and regular rate & rhythm Airway Submandibular: within normal limits Cervical ROM: within normal limits Mallampati: Class II Dentition: chipped Pulmonary Chronic Obstructive Pulmonary Disease Metabolic Morbid Obesity and Thyroid Disease Musc/skel Lower Back Pain, Osteoarthritis/DJD and Rheumatoid Arthritis Neuropsych chronic pain Anesthetic Plan ASA status: 3 Anesthesia: General Medications/Allergies Home Medications Medication Instructions Recorded Confirmed Last Taken Type loratadine 10 mg tablet 10 mg PO BEDTIME 06/09/19 04/30/23 04/30/23 History Sole Supports #1 ea 09/22/19 04/03/23 Unknown Rx levothyroxine 112 mcg capsule 75 mcg PO DAILY 04/12/22 04/30/23 04/30/23 History duloxetine 30 mg capsule,delayed 30 mg PO BID pain #60 caps 12/24/22 04/30/23 04/30/23 Rx release (Cymbalta) pantoprazole 40 mg tablet,delayed 40 mg PO DAILY 02/13/23 04/30/23 04/30/23 History release pregabalin 100 mg capsule (Lyrica) 100 mg PO TID chronic pain 30 04/01/23 04/30/23 04/30/23 Rx days #90 caps leflunomide 20 mg tablet 20 mg PO DAILY #90 tabs 04/03/23 04/30/23 04/30/23 Rx prednisone 10 mg tablet See Rx Instructions PO .COMPLEX 04/03/23 04/30/23 Unknown Rx joint pain #30 tabs tofacitinib 5 mg tablet (Xeljanz) 5 mg PO BID #60 tabs 04/03/23 04/30/23 04/30/23 Rx hydroxychloroquine 200 mg tablet 200 mg PO BID 05/01/23 05/01/23 04/30/23 History Allergies Allergy/AdvReac Type Severity Reaction Status Date / Time Penicillins Allergy HIVES Verified 05/01/23 06:33 Sulfa (Sulfonamide Allergy HIVES Verified 05/01/23 06:33 Antibiotics) zonisamide [From Zonegran] Allergy HIVES Verified 05/01/23 06:33 Current Medications Generic Name Dose Route Start Last Admin Trade Name Freq PRN Reason Stop Dose Admin Sodium Chloride 1,000 mls @ 30 mls/hr 05/01/23 06:30 05/01/23 06:50 Sodium Chloride 0.9% IV 05/02/23 06:29 30 mls/hr .Q24H CADEN Administration PFSH Anesthesia Medical History Diarrhea in adult patient Greater trochanteric pain syndrome of both lower extremities Psychiatric care Encounter for long-term (current) use of NSAIDs Bronchitis Meralgia paraesthetica Chronic steroid use Immunization counseling Seronegative rheumatoid arthritis Inflammatory arthritis High risk medication use Sjogren's syndrome Long-term current use of opiate analgesic Pain management contract signed Smoker Lumbosacral spondylosis with radiculopathy Screen for colon cancer Surgical History History of colonoscopy with polypectomy (~06/2019) History of laparoscopic cholecystectomy 1999 History of endometrial ablation Family History Other Cancer Chronic kidney disease (CKD) Rheumatoid arthritis Denies family history of Diabetes Lupus Systemic lupus erythematosus (SLE) in adult Anesthesia complication Bleeding disorder Hypertension Stroke Social History Smoking and tobacco/nicotine status: current every day tobacco/nicotine user (less than 1/2PPD) cigarettes Packs smoked per day: 0.5 Alcohol intake: never Substance/Drug Use: never Adopted: No Caregiver/support person: Yes Lives independently: Yes Household members: spouse Housing: House Highest education level completed: High School Graduate service: No Current occupational exposures/hazards: No Pets and animals: No Sexually active: No Do you think of yourself as: Straight/Heterosexual Current gender identity: Female Maral/Buddhism: Presybeterian Special maral needs: No Agree to transfusion: No Data Anesthesia Cardiac Studies: No Data to Display
[2023-05-01] MEDS: ceFAZolin 2,000 MG in sodium chloride 0.9% (plus) 50 ML 100 MG IV (07:47)
[2023-05-01] MEDS: lidocaine-epi 2% 20 mL INJ 10 ML INJECTION (08:10)
[2023-05-01] MEDS: ROPivacaine 0.5% SDV 30 mL 50 MG INJECTION (08:10)
--- NOTE | 2023-05-01 08:40 | PM.OP ---
Operative Report Date of procedure: May 01, 2023 Surgeon: Quinten Velasquez DO Commercial Maintenance Technician: Nile Velasquez PA-C: PA was necessary for assistance in this case with hand positioning to execute the procedure, retraction and protection of neurovascular structures as well as to assist with wound closure and dressing application. Procedure: Preoperative diagnosis: Left carpal tunnel syndrome Left cubital tunnel syndrome postop Diagnosis: Same Procedure done: left carpal tunnel release left?cubital?tunnel tunnel release (ulnar nerve decompression at elbow) Surgeon: Quinten Velasquez DO Estimated blood loss: 5 mL Tourniquet? 21 minutes IV fluids: 300 mL Complications: None Findings: See operative report narrative Condition: stable Disposition: same day Brief History: Patient's been seen and worked up in the outpatient setting and findings consistent with preoperative diagnosis.? Patient has left carpal tunnel syndrome as well as left?cubital?tunnel syndrome which has been worked up in the outpatient setting has physical exam findings consistent with this as well as confirmatory nerve conduction/EMG nerve conduction study consistent with diagnosis.? Patient's failed conservative treatment.? As result through shared decision making agreed to proceed with? left carpal tunnel and left?cubital?tunnel possible ulnar nerve transposition release we talked about treatment options as far as nonoperative and operative intervention.? Understands risk benefits complication alternatives surgical nonsurgical treatment options.? Understanding his risks he agrees to proceed with surgical intervention. Understanding these risks he agrees to proceed with surgery.? Consent obtained in office. Procedure: Patient seen evaluate in the preoperative holding area.? Consent was reviewed and signed with patient.? Correct extremity marked.? Patient seen evaluated by anesthesia department once cleared for surgery was then taken back to the operative suite placed in supine position all bony prominences well-padded patient properly secured to bed.? left upper extremity placed onto armboard.? Nonsterile tourniquet applied left upper arm.? Patient then underwent anesthesia per the anesthesia department.? Patient's left upper extremity was then prepped and draped in standard orthopedic fashion.? Final timeout performed.? Patient received appropriate preoperative antibiotics. Esmarch was used exsanguinate the left upper extremity.? Tourniquet was insufflated to 250 mmHg. I started with the carpal tunnel release first.? I made a standard open carpal tunnel release starting with the distal most extent in the palm at the Porter's cardinal line and the incision line was made in line with the fourth ray and ended just distal to the wrist crease.? Sharp scalpel incision was made through skin and subcutaneous tissue I then utilizing self retainer then began to dissect with dissection scissors split longitudinally the palmar fascia.? Next I then utilizing my administrative assistant coordinator Israel retractors subsequently utilizing scalpel feathered through the palmaris brevis as well as through the transverse carpal ligament distally.? Once I encountered the floor of the transverse carpal ligament and entered into the carpal tunnel I then switched to dissection scissors.? Carefully released the distal extent of the transverse carpal ligament to the palmar fat.? Care was to protect the recurrent branch and not injured this during this part of the case.? Next I then placed a Aurora underneath the transverse carpal ligament proximally to protect the nerve in the carpal tunnel contents.? And then I subsequently under loupe magnification utilize my dissection scissors to release the transverse carpal ligament into the antebrachial fascia under direct visualization with care to keep my scissors with a curved ulnarly away from the palmar cutaneous branch.? The transverse carpal was then completely decompressed proximally and a Aurora was then placed both distally and proximally throughout the carpal tunnel and had complete decompression of the nerve.? The nerve did appear to have hourglass shape as it went through the carpal tunnel.? With significant irritation noted around the nerve.? No masses were noted within the contents of the carpal tunnel.? This completed the carpal tunnel release and then I subsequently irrigated the wound bed and placed a wet Ray-Maggi into the incision for later closure. Next marked out the landmarks of the left elbow of the medial epicondyle and olecranon and made a curvilinear incision following the course of the ulnar nerve at the medial aspect of the elbow.? Sharp scalpel incision was made through skin and subcutaneous tissue.? Next I switched to Littler dissection scissors and spread in plane of the medial antebrachial cutaneous nerve branching which was protected throughout this part of the dissection.? Then I directly came down over the fascia and identified the 2 heads of the FCU fascia and split this left in the middle and subsequently identified my ulnar nerve distally.? This was then completely released distally under direct visualization and loupe magnification.? Once the nerve was then identified I then subsequently tracked this proximally and released this through Tena's ligament as well as complete decompression of the nerve proximally all the way past the intermuscular septum.? The nerve was completely released and decompressed both proximally and distally.? Ulnar nerve neurolysis performed and completed both proximally and distally with dissection scissors.? I then took the elbow through range of motion and there was no instability or subluxating of the ulnar nerve.? This completed?cubital?tunnel release.? ?Next the wound bed was thoroughly irrigated.? Tourniquet was deflated.? Hemostasis was satisfactory at the?cubital?tunnel release surgery site. I then inspected the carpal tunnel incision and this was found to have satisfactory hemostasis and all this was maintained through bipolar electrocautery.? At this point time I sequentially closed?cubital?tunnel site with 3-0 Vicryl suture in a running horizontal mattress nylon stitch.? ? The carpal tunnel release surgery was then closed in standard interrupted mattress fashion.? Dressing was Xeroform 4 x 4's ABD Curlex soft roll and an Moises wrap has a bulky soft dressing. Patient was then awakened from anesthesia and taken to PACU in stable condition. Disposition: Patient taken to PACU in stable condition recovering well.? Patient will receive appropriate discharge instructions as well as pain medication postoperatively.? We will follow-up with me in the office in 2 weeks.? Patient understands agrees with current plan.? All questions answered.? He understands if any questions or concerns and contact the office for follow-up appointment..
--- NOTE | 2023-05-01 09:06 | P.BOP_ITS ---
Date of Procedure: [May 01, 2023] Surgeon: [Dr. Velasquez DO] Language Specialist(s): [Nile Velasquez PA-C] Procedure(s) performed: [Left carpal tunnel release and left cubital tunnel release] Findings of the procedure(s): [Left carpal tunnel syndrome and left cubital tunnel syndrome] Estimated blood loss: [5 ml] Specimen(s) removed: [n/a] Post-operative diagnosis: [Left carpal tunnel syndrome and left cubital tunnel syndrome]
--- NOTE | 2023-05-01 09:08 | PM.PACU ---
PACU note Narrative: Patient is a 57-year-old female just underwent a left carpal tunnel release and left cubital tunnel release. Patient transferred to PACU in stable condition. Pain is well controlled. Dressing on hand is dry and in place. Patient's fingers are warm and well-perfused. Patient can wiggle fingers. normal cap refill under 2 seconds. Patient has normal elbow range of motion. Unable to assess sensation due to residual localized anesthetic. Exam: awake Disposition: discharged
[2023-05-01] MEDS: HYDROcodone-acetaminophen 5-325 mg Tablet 1 TAB PO (10:00)
--- NOTE | 2023-05-01 16:29 | ANE.PACU2 ---
Inpatient post-anesthesia follow up: Airway intact: Yes Vital signs: Temperature 97.7 F Pulse Rate 68 Respiratory Rate 17 Blood Pressure 146/81 Pulse Oximetry 96 Oxygen Delivery Me thod Room Air Oxygen Flow Rate 6 Fraction of Inspir ed Oxygen Hydration adequate: Yes Nausea and vomiting: No Pain level: 2 Mental status: Baseline
== END 2023-05-01 10:06 | disposition home or self-care (01) ==
PROVIDERS: PCP Nurse Practitioner Family; Visit Provider Student in an Organized Health Care Education/Training Program
PROC: (CPT 64721; principal; 2023-05-01 07:55)
PROC: (CPT 64718; 2023-05-01 07:55)
DX: G56.02 Carpal tunnel syndrome, left upper limb (principal); G56.22 Lesion of ulnar nerve, left upper limb; J44.9 Chronic obstructive pulmonary disease, unspecified; E66.01 Morbid (severe) obesity due to excess calories; Z68.32 Body mass index [BMI] 32.0-32.9, adult; M19.90 Unspecified osteoarthritis, unspecified site; M06.9 Rheumatoid arthritis, unspecified
CPT/HCPCS: 64718; 64721; J0131; J0690; J1885; J2704; J2795; J3010; J7030

== ENCOUNTER → 2023-05-16 09:03 | Outpatient (BNVA) | payer MEDICARE, MEDICAID, SELFPAY | PROVIDERS: PCP Nurse Practitioner Family; Visit Provider Physician Assistant | DX: Z98.890 Other specified postprocedural states (principal) | CPT/HCPCS: 99024 ==

== ENCOUNTER 2023-05-25 13:42 | Emergency (ER) | payer MEDICARE, MEDICAID, SELFPAY ==
[2023-05-25 13:49] VITALS: BP 162/82; PULSE 75; RESP 18; TEMP 36.5; O2SAT 97; BMI 35.0
--- NOTE | 2023-05-25 14:48 | ED_ITS ---
HPI - Skin/Abscess/Foreign Bdy General: Chief complaint: Skin/Abscess/Foreign Body Stated complaint: left elbow pain Time Seen by Provider: 05/25/23 14:15 Source: patient Mode of arrival: ambulatory Limitations: no limitations History of Present Illness: Patient presents to the emergency department today for evaluation treatment of multiple complaints. Patient approximately 2 weeks ago had cubital tunnel and carpal tunnel surgery with Dr. Velasquez. I did read over the op notes which indicated no acute issues during the procedure. I also read the follow-up note from the of this month where patient had sutures removed. Incisions looked good and patient seemed to be doing well. However, patient reports today that he has an area of swelling, tenderness, and redness on her left elbow incision patient then also has several other things she brings up such as abnormal thyroid-states she had some lab work done a couple days ago that her doctor is following up on but her doctor has not seen the results yet so does not have a scheduled follow-up. 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 She then states she feels overall unwell. She states she had chills and sweats last night and suspects a fever during that time. She also reports an episode of vomiting. She states she has upper respiratory symptoms and a headache. She is requesting pain medication for her headache. Review of Systems General: Reports: 10 or more systems reviewed and unremarkable except in HPI and below PFSH ED PFSH: Medical History Diarrhea in adult patient Greater trochanteric pain syndrome of both lower extremities Psychiatric care Encounter for long-term (current) use of NSAIDs Bronchitis Meralgia paraesthetica Chronic steroid use Immunization counseling Seronegative rheumatoid arthritis Inflammatory arthritis High risk medication use Sjogren's syndrome Long-term current use of opiate analgesic Pain management contract signed Smoker Lumbosacral spondylosis with radiculopathy Screen for colon cancer Surgical History History of colonoscopy with polypectomy (~06/2019) History of laparoscopic cholecystectomy 1998 History of endometrial ablation Family History Other Cancer Chronic kidney disease (CKD) Rheumatoid arthritis Denies family history of Diabetes Lupus Systemic lupus erythematosus (SLE) in adult Anesthesia complication Bleeding disorder Hypertension Stroke Social History Smoking and tobacco/nicotine status: current every day tobacco/nicotine user (less than 1/2PPD) cigarettes Packs smoked per day: 0.5 Alcohol intake: never Substance/Drug Use: never Adopted: No Caregiver/support person: Yes Lives independently: Yes Household members: spouse Housing: House Highest education level completed: High School Graduate service: No Current occupational exposures/hazards: No Pets and animals: No Sexually active: No Do you think of yourself as: Straight/Heterosexual Current gender identity: Female Maral/Pentecostal: Religion Special maral needs: No Agree to transfusion: No Physical Exam Const: COMMON NORMALS: no acute distress, patient oriented x3 and alert HENMT: COMMON NORMALS: normocephalic, atraumatic and hearing grossly normal bilaterally HEAD & SCALP: normocephalic and atraumatic OTHER: No signs of active rhinorrhea. Mucous membranes are moist. Eye: COMMON NORMALS: Equal, round and reactive pupils present, EOMs intact bilaterally and conjunctivae normal CONJUNCTIVA: Yes conjunctivae normal PUPIL: Yes Equal, round and reactive pupils present Neck/C-Spine: COMMON NORMALS: full ROM and no JVD Lymph: LYMPHATIC: no lymphadenopathy noted Resp: COMMON NORMALS: normal respiratory effort, No retractions and No use of accessory muscles Cardio: COMMON NORMALS: no JVD and regular rate RATE: regular rate Extremity: NARRATIVE EXTREMITY EXAM: Patient has a linear surgical scar to her left elbow with minimal erythema. The most distal portion of the incision has a small amount of erythema approximately 1 cm in diameter with minimal swelling. It is somewhat firm but there is no si gns of wound dehiscence. There is no active draining or bleeding. Patient demonstrates ability to flex at 90 degree angle and extend. Patient pronates and supinates without difficulty. Surgical incision to the left anterior wrist region without erythema and no signs of wound dehiscence. Neuro: COMMON NORMALS: patient oriented x3 SENSORIUM/ORIENTATION: Yes alert Psych: COMMON NORMALS: mental status grossly normal, Normal thought process present, cooperative and normal affect THOUGHT PROCESS: Normal thought process present Skin: COMMON NORMALS: no rashes or lesions noted and turgor normal GENERAL SKIN EXAM: no rashes or lesions noted and turgor normal Course Vital Signs: Vital signs: Vital Signs Temperature 97.7 F 05/25/23 13:49 Pulse Rate 74 05/25/23 15:29 Respiratory Rate 18 05/25/23 13:49 Blood Pressure 204/110 05/25/23 15:29 Pulse Oximetry 96 05/25/23 15:29 Oxygen Delivery Me thod Room Air 05/25/23 15:29 MDM - Skin/Abscess/Foreign Bdy Medicial Decision Making Patient presents emergency department today with multiple issues brought up in the room. She is postop 2 weeks with a postop follow-up through orthopedics indicating no acute concerns. Sutures were removed on the . She does not have signs of wound dehiscence and there is only a very small area of erythema today. Patient demonstrates mobility in the extremity without acute findings. She also reports symptoms of illness including an episode of vomiting, significant headache, and upper respiratory symptoms. She originally requests pain medication for her headache and states Tylenol does not work and she cannot take NSAIDs. I explained that narcotics are not used to treat headaches and she then asked about tramadol. Patient also brought up issues with her thyroid but it sounds like her doctor has not only ordered blood work but is waiting to hear the results will not blood work to determine treatment. I will defer issues regarding the patient's thyroid back to her doctor as her doctor is addressing this issue for her. I was able to reach out to Nile Velasquez PA-C who did her orthopedic follow-up on the . I explained the findings on the surgical wound and while he does not believe it is a significant infection, indicated we could get her started on Keflex with recommendation to call the office on Saturday for follow-up appointment this coming week. Upon reevaluation of the patient, she seems to be resting much more comfortably in the bed. Explained that her urine is clear and she is COVID and flu negative. Discussed with further recommendations for treatment for her elbow. She is still complaining of pain in the elbow so a one-time dose of pain medication was provided here in the ER. Patient has family with her to make sure she can get home safely. She is to carefully monitor for any spreading redness, decreased range of motion, new onset fever, or change in her respiratory symptoms. If she has any concerns she can be seen and reevaluated. Otherwise, follow-up with orthopedics this coming week. Patient verbalized understanding and agreement to treatment plan. Differential Diagnosis Likely cellulitis; Unlikely abscess of skin or subcutaneous tissue, viral exanthem, urticaria, allergic reaction to drug, insect bites, impetigo or contact dermatitis Lab Data Laboratory Results Urine Color Yellow (Yellow) 05/25/23 15:15 Urine Appearance Clear (CLEAR) 05/25/23 15:15 Urine pH 6.5 (5-7) 05/25/23 15:15 Ur Specific [place] 1.005 (1.005-1.030) 05/25/23 15:15 Urine Protein Neg (Negative) 05/25/23 15:15 Urine Glucose (UA) Norm (Normal) 05/25/23 15:15 Urine Ketones Negative (Negative) 05/25/23 15:15 Urine Blood Neg (Negative) 05/25/23 15:15 Urine Nitrate Negative (Negative) 05/25/23 15:15 Urine Bilirubin Neg (Negative) 05/25/23 15:15 Urine Urobilinogen Norm mg/dL (Negative) 05/25/23 15:15 Ur Leukocyte Esterase Negative (Negative) 05/25/23 15:15 Influenza Type A Ag negative (Negative) 05/25/23 15:13 Influenza Type B Ag negative (Negative) 05/25/23 15:13 SARS-CoV-2 Ag (Rapid) negative (Negative) 05/25/23 15:13 No radiology studies performed this visit Discharge Plan Discharge Patient Disposition: Home Clinical Impression: Post surgical complication, Arthralgia of elbow, left, URI (upper respiratory infection) Condition: Stable Prescriptions: New cephalexin 500 mg capsule 500 mg PO Q8H 10 Days Qty: 30 0RF No Action (DME) Sole Supports See Rx Instructions .ROUTE .MEDSUPPLY Qty: 1 0RF Rx Instructions: As directed loratadine 10 mg tablet 10 mg PO BEDTIME duloxetine [Cymbalta] 30 mg capsule,delayed release(DR/EC) 30 mg PO BID Qty: 60 5RF leflunomide 20 mg tablet 20 mg PO DAILY Qty: 90 1RF prednisone 10 mg tablet See Rx Instructions PO .COMPLEX Qty: 30 1RF Rx Instructions: take 1-2 tab daily for 4-5 days prn joint pain flare PO; Xeljanz 5 mg tablet 5 mg PO BID Qty: 60 3RF pregabalin [Lyrica] 100 mg capsule 100 mg PO TID MDD 3 30 Days Qty: 90 2RF pantoprazole 40 mg tablet,delayed release (DR/EC) 40 mg PO DAILY Qty: 30 3RF hydroxychloroquine 200 mg tablet 200 mg PO BID levothyroxine 75 mcg tablet 75 mcg PO QAM cyclobenzaprine 10 mg tablet 10 mg PO DAILY ondansetron HCl 4 mg tablet 4 mg PO BID PRN (Reason: nausea/vomiting) potassium chloride 20 mEq tablet,ER particles/crystals 40 meq PO DAILY mupirocin 2 % ointment 1 applic TOPICAL DAILY rosuvastatin 10 mg tablet 10 mg PO BEDTIME Discharge Orders: Discharge ED (Routine); Ordered 05/25/23 Ordered By: Nicole Kendrick Referrals: Abby Aguirre FNP [Primary Care Provider] - Discharge Diet: Usual diet Discharge Activity: Limit activity as instructed Patient Instructions: Cellulitis (ED), Upper Respiratory Infection (ED) Activity Restrictions/Additional Instructions: COVID and influenza are negative. Urinalysis shows no signs of any infection. I did discuss the redness of your surgical incision on your elbow with Nile Velasquez PA-C who did your orthopedic follow-up and participated in your surgery. He indicated he did not see concerns of a significant infection but, to prevent any spread of potential infection over the next several days he is putting you on a prophylactic course of antibiotics. He does request that you call the office on Saturday to schedule a follow-up appointment next week for recheck. Continue to watch your upper respiratory symptoms. You can use [id number] cough and cold medications as needed. Also, the medication recommended you take for prevention of any spreading cellulitis from your incision gives coverage too many upper respiratory concerns as well so, we will actually have double coverage with this antibiotic. Follow-up with your primary care if needed for upper respiratory concerns. Coding Level of Care Code ED Counter Intelligence Technician for Madelyn Garcia
[2023-05-25] MEDS: sodium chloride 0.9% 1,000 ML 999 ML IV (14:58)
[2023-05-25] MEDS: dexamethasone 10 mg/mL INJ IM (14:59)
[2023-05-25] MEDS: diphenhydrAMINE 50 mg/mL SDV 1mL IVP (14:59)
[2023-05-25] MEDS: metoclopramide 5 mg/mL SDV 2 mL 10 MG IVP (14:59)
[2023-05-25] MEDS: orphenadrine 30 mg/mL Inj 2 mL IVP (14:59)
[2023-05-25 15:21] LABS: Add Urine Microscopic? NO; Charge for UA Resulting for Rev
[2023-05-25 15:23] LABS: Bilirubin Urine Neg (Negative); Blood Urine Neg (Negative); Glucose Urine UA Norm (Normal); Ketones Urine Negative (Negative); Leukocyte Esterase Urine Negative (Negative); Nitrate Urine Negative (Negative); Protein Urine Neg (Negative); Specific Gravity, Urine 1.005 (1.005-1.030); Urine Appearance Clear (CLEAR); Urine Color Yellow (Yellow); Urobilinogen Urine Norm (Negative); pH Urine 6.5 (5-7)
[2023-05-25 15:29] VITALS: BP 204/110; PULSE 74; O2SAT 96
[2023-05-25 15:37] LABS: Influenza A by IFA negative (Negative); Influenza B by IFA negative (Negative); SARS Covid-2 Antigen negative (Negative)
--- NOTE | 2023-05-25 15:44 | PC.NURSE ---
SHARON NOTIFIED OF PT BLOOD PRESSURE OF 204/110. NO NEW ORDERS GIVEN.
[2023-05-25] MEDS: morphine 4 mg/mL SDV 1 mL 2 MG IVP (16:33)
[2023-05-25] MEDS: cephALEXin 500 mg Capsule PO (16:33)
[2023-05-25 16:42] VITALS: BP 185/94; PULSE 78; O2SAT 96
== END 2023-05-25 16:45 | disposition home or self-care (01) ==
PROVIDERS: Emergency Provider Physician Assistant; PCP Nurse Practitioner Family
DX: M25.522 Pain in left elbow (principal); J06.9 Acute upper respiratory infection, unspecified; L76.82 Other postprocedural complications of skin and subcutaneous tissue; F17.210 Nicotine dependence, cigarettes, uncomplicated; Z11.52 Encounter for screening for COVID-19
CPT/HCPCS: 81003; 87426; 87804; 96361; 96372; 96374; 96375; 99284; J1100; J1200; J2270; J2360; J2765; J7030

== ENCOUNTER → 2023-05-28 14:01 | Outpatient (BNVA) | payer MEDICARE, MEDICAID, SELFPAY | PROVIDERS: PCP Nurse Practitioner Family; Visit Provider Physician Assistant | DX: Z98.890 Other specified postprocedural states (principal) | CPT/HCPCS: 99024 ==

== ENCOUNTER → 2023-07-23 10:10 | Outpatient (BNVA) | payer MEDICAID, SELFPAY | PROVIDERS: PCP Nurse Practitioner Family; Referring Provider Nurse Practitioner Family; Visit Provider Nurse Practitioner Family | DX: M06.9 Rheumatoid arthritis, unspecified (principal); D22.5 Melanocytic nevi of trunk; L57.0 Actinic keratosis; L81.4 Other melanin hyperpigmentation | CPT/HCPCS: 17000; 17110; 99203 ==

== ENCOUNTER → 2023-08-22 10:03 | Outpatient (BNVA) | payer OTHER, SELFPAY | PROVIDERS: PCP Nurse Practitioner Family; Visit Provider Anesthesiology Pain Medicine | DX: M54.50 Low back pain, unspecified (principal); M79.605 Pain in left leg | CPT/HCPCS: 99213 ==

== ENCOUNTER → 2023-08-27 08:58 | Outpatient (BNVA) | payer OTHER, SELFPAY | PROVIDERS: PCP Nurse Practitioner Family; Visit Provider Nurse Practitioner Family | DX: B07.8 Other viral warts (principal); L82.1 Other seborrheic keratosis; L57.8 Other skin changes due to chronic exposure to nonionizing radiation | CPT/HCPCS: 17110; 99213 ==

== ENCOUNTER → 2023-09-03 08:35 | Outpatient (BNVA) | payer MEDICARE, MEDICAID, SELFPAY | PROVIDERS: PCP Nurse Practitioner Family; Visit Provider Student in an Organized Health Care Education/Training Program | DX: M65.341 Trigger finger, right ring finger (principal); M65.311 Trigger thumb, right thumb | CPT/HCPCS: 99214 ==

== ENCOUNTER 2023-10-02 08:18 | Day surgery (SDC) | payer MEDICARE, MEDICAID, SELFPAY ==
[2023-10-02] VITALS (8 sets, daily range): BP systolic 137–190; BP diastolic 73–107; PULSE 60–74; RESP 13–18; TEMP 36.2–37.3; O2SAT 94–98; BMI 35.4
--- NOTE | 2023-10-02 08:59 | W.PM.OPSUD ---
Surgery/Procedure H&P Update DATE OF PROCEDURE: October 02, 2023 DATE H&P PERFORMED: 09/03/23 H&P UPDATE INFORMATION: I have reviewed H&P completed within last 30 days, I have examined patient prior to procedure and No changes to prior documentation PREOP DIAGNOSIS: Right thumb trigger, right ring finger trigger PRIMARY INDICATION FOR PROCEDURE: Right thumb trigger, right ring finger trigger PLANNED PROCEDURE: Operation Date: 10/02/23 10:00 Proposed Procedures p Trigger Finger Release/right thumb trigger release & right ring finger trigger release(Right) - Quinten Velasquez DO
[2023-10-02] MEDS: sodium chloride 0.9% 1,000 ML 30 ML IV (09:14)
[2023-10-02] MEDS: ketorolac 30 mg/mL INJ IVP (09:16)
[2023-10-02] MEDS: scopolamine 1.5 Patch 1 PATCH TRANSDERMA (09:18)
[2023-10-02] MEDS: acetaminophen 1,000 MG/100 ML PIGGYBACK 400 MG IV (09:19)
--- NOTE | 2023-10-02 09:31 | P.ANESASSM_ITS ---
Pre-Anesthetic Assessment Height/Weight: Height 1.6 m Weight 90.718 kg Temp Pulse Resp BP Pulse Ox O2 Del Method 97.1 F L 74 17 190/107 97 Room Air 10/02/23 08:58 10/02/23 08:58 10/02/23 08:58 10/02/23 08:58 10/02/23 08:58 10/02/23 09:03 Preop Diagnosis: Right thumb trigger, right ring finger trigger Operation Date: 10/02/23 10:00 Proposed Procedures p Trigger Finger Release/right thumb trigger release & right ring finger trigger release(Right) - Quinten Eva, DO Familial anesthetic complications: None Was Beta Romero taken within 24 hours: N/A Was Clonidine taken within 24 hours: N/A Last intake: Intake Last Liquid Date 10/01/23 Last Liquid Time 22:00 Last Solid Date 10/01/23 Last Solid Time 16:00 Social Tobacco and No alcohol Exam alert, oriented x 3, clear to auscultation bilaterally and regular rate & rhythm Airway Mallampati: Class III Dentition: chipped and partials GI Gastroesophageal Reflux Disease Metabolic Morbid Obesity and Thyroid Disease [facility] [place] Rheumatoid Arthritis Anesthetic Plan ASA status: 3 Anesthesia: MAC Risk of > 500 ml blood loss (7ml/kg in children): No Medications/Allergies Home Medications Medication Instructions Recorded Confirmed Last Taken Type loratadine 10 mg tablet 10 mg PO BEDTIME 06/09/19 10/01/23 10/01/23 History Sole Supports #1 ea 09/22/19 09/03/23 Unknown Rx duloxetine 30 mg capsule,delayed 30 mg PO BID pain #60 caps 12/24/22 10/01/23 10/01/23 Rx release (Cymbalta) leflunomide 20 mg tablet 20 mg PO DAILY #90 tabs 04/03/23 10/01/23 10/01/23 Rx prednisone 10 mg tablet See Rx Instructions PO .COMPLEX 04/03/23 10/01/23 Unknown Rx joint pain #30 tabs tofacitinib 5 mg tablet (Xeljanz) 5 mg PO BID #60 tabs 04/03/23 10/01/23 10/01/23 Rx hydroxychloroquine 200 mg tablet 200 mg PO BID 05/01/23 10/01/23 10/01/23 History cyclobenzaprine 10 mg tablet 10 mg PO DAILY 05/25/23 10/02/23 05/24/23 History levothyroxine 75 mcg tablet 75 mcg PO QAM 05/25/23 10/01/23 10/01/23 History ondansetron HCl 4 mg tablet 4 mg PO BID PRN nausea/vomiting 05/25/23 10/01/23 Unknown History potassium chloride 20 mEq 40 meq PO DAILY 05/25/23 10/01/23 10/01/23 History tablet,extended release(part/cryst) rosuvastatin 10 mg tablet 10 mg PO BEDTIME 05/25/23 10/01/23 10/01/23 History pregabalin 100 mg capsule (Lyrica) 100 mg PO TID chronic pain 30 07/15/23 10/01/23 10/01/23 Rx days #90 caps pantoprazole 40 mg tablet,delayed 40 mg PO DAILY 10/02/23 10/02/23 10/01/23 History release Allergies Allergy/AdvReac Type Severity Reaction Status Date / Time Penicillins Allergy HIVES Verified 10/02/23 09:10 Sulfa (Sulfonamide Allergy HIVES Verified 10/02/23 09:10 Antibiotics) zonisamide [From Zonegran] Allergy HIVES Verified 10/02/23 09:10 Current Medications Generic Name Dose Route Start Last Admin Trade Name Freq PRN Reason Stop Dose Admin Sodium Chloride 1,000 mls @ 30 mls/hr 10/02/23 08:45 10/02/23 09:14 Sodium Chloride 0.9% IV 10/03/23 08:44 30 mls/hr .Q24H CADEN Administration PFSH Anesthesia Medical History Diarrhea in adult patient Greater trochanteric pain syndrome of both lower extremities Psychiatric care Encounter for long-term (current) use of NSAIDs Bronchitis Meralgia paraesthetica Chronic steroid use Immunization counseling Seronegative rheumatoid arthritis Inflammatory arthritis High risk medication use Sjogren's syndrome Long-term current use of opiate analgesic Pain management contract signed Smoker Lumbosacral spondylosis with radiculopathy Screen for colon cancer Surgical History History of colonoscopy with polypectomy (~06/2019) History of laparoscopic cholecystectomy 1998 History of endometrial ablation Family History Other Cancer Chronic kidney disease (CKD) Rheumatoid arthritis Denies family history of Diabetes Lupus Systemic lupus erythematosus (SLE) in adult Anesthesia complication Bleeding disorder Hypertension Stroke Social History Smoking and tobacco/nicotine status: current every day tobacco/nicotine user (less than 1/2PPD) cigarettes Packs smoked per day: 0.5 Alcohol intake: never Substance/Drug Use: never Adopted: No Caregiver/support person: Yes Lives independently: Yes Household members: spouse Housing: House Highest education level completed: High School Graduate service: No Current occupational exposures/hazards: No Pets and animals: No Sexually active: No Do you think of yourself as: Straight/Heterosexual Current gender identity: Female Maral/Zoroastrian: Restorationism Special maral needs: No Agree to transfusion: No Data Anesthesia Cardiac Studies: No Data to Display
[2023-10-02] MEDS: clindamycin 900 MG/50 ML PREMIX 100 MG IV (10:22)
[2023-10-02] MEDS: BUPivacaine 0.5% INJ 10 mL 5 ML INJECTION (11:38)
[2023-10-02] MEDS: ROPivacaine 0.5% SDV 30 mL 25 MG INJECTION (11:38)
--- NOTE | 2023-10-02 11:40 | PM.OP ---
Operative Report Date of procedure: October 02, 2023 Surgeon: Quinten Velasquez DO Locate Technician: Nile Velasquez PA-C: PA was necessary for assistance in this case with hand positioning to execute the procedure, retraction and protection of neurovascular structures as well as to assist with wound closure and dressing application. Procedure: Preoperative diagnosis: Right thumb and ring finger trigger Post-op diagnosis: Right thumb?trigger finger Right ring finger trigger Right ring finger retinacular cyst Procedure done: Right thumb?trigger?release Right ring finger trigger release Right ring finger retinacular cyst excision Surgeon: Quinten Velasquez DO Estimated blood loss: 5 mL Tourniquet time: 17 minutes Anesthesia: MAC with local IV fluids: See anesthesia record Complications: None Findings: See operative report narrative Condition: stable Disposition: same day Brief History: Patient presents to the outpatient setting with findings consistent with a right thumb?trigger and right ring finger trigger. Patient has been worked up in the outpatient setting and is failed conservative treatment approach.? Patient has a right thumb?trigger and right ring finger trigger?that she has tried treating conservatively with recurrence of her?triggering pain.? We talked about treatment options and ultimately patient would like to proceed with a right thumb?trigger?release and right ring finger trigger release. At this point time I feel this is most appropriate as this is her next best step in treatment option.? We talked about the risk benefits complications and alternatives with surgical nonsurgical treatment options.? Understanding risk of surgery patient agrees to proceed with a surgical intervention. All questions answered. Procedure: Patient was seen evaluated in the preoperative holding area.? Consent was reviewed and signed with patient.? Correct extremity was then marked.? Patient was then seen and evaluated by the anesthesia department once cleared for surgery patient was then taken back to the operative suite patient was placed in supine position and all bony prominences well-padded the patient was properly secured to the bed.? Armboard was applied to the right upper extremity and the right upper extremity was then placed with a nonsterile tourniquet to the right upper arm.? This point time the right upper extremity was then prepped and draped in standard orthopedic fashion.? A final timeout was performed.? Patient received appropriate preoperative antibiotics. Esmarch tourniquet was used exsanguinate the right upper extremity and tourniquet was insufflated to 250 mmHg.? I identified patient's MP flexion crease marked appropriate incision transversely across the flexion crease within Cong's lines sharp scalpel incision was made only through skin.? Once this was done I switched to Littler dissection scissors this I then subsequently spread longitudinally in the planes of the digital nerves.? Once these were identified these were protected by my pediatric physical therapy assistant with Kasdan retractors.? Next I identified directly over the A1 humza of the right thumb.? This was significantly thickened and identified to be the area of patient's thumb?triggering.? I used sharp scalpel to incise the A1 humza and then utilized my pediatric physical therapy assistant to retract the ability and under loupe magnification released the entirety of the A1 humza both proximally and distally up to the oblique humza.? This point time the tendon was then inspected and found to be healthy there was some inflammation around the tendon itself but no evidence of tearing and no need for any debridement.? The Ragnell was used to pull the tendon out of the incision and there was no mechanical?triggering I then took the patient's thumb through range of motion no recurrent?triggering was noted.? ? Next proceeded with release of the right ring finger. Under sterile aseptic technique local digital block was performed to the right ring finger.? Once appropriately anesthetized a standard horizontal/oblique incision was made centering over the A1 humza following patient's flexor crease.? Sharp scalpel incision was made only through skin and then switched to Littler dissection scissors and spread longitudinally directly over the flexor tendon sheath.? I then mobilized both radially and ulnarly and Kasdan retractors were used and placed by my pediatric physical therapy assistant to protect neurovascular bundle. next I visualized the A1 humza and this was incised with a scalpel.? Immediately on incision there was a protruding retinacular cyst noted. I then circumferentially dissected this with dissection scissors and excised this to its entirety and sent this to pathology. I then switched to dissection scissors and released the A1 humza both proximally as well as distally to its entirety.? Significant tendon sheath fluid was noted consistent with inflammation.? Mild fraying of the flexor tendons noted but no tear.? At this point I utilized a rag nail and pulled the tendons FDS and FDP out of the incision and no?triggering was noted.? I then had anesthesia wake up the patient and patient was able to actively flex and extend with no?triggering for both of the digits.? This point thorough irrigation was performed.? Tourniquet deflated hemostasis satisfactory with bipolar.? I then subsequently closed the incision with interrupted nylon suture.? Xeroform 4 x 4's, Kerlix and an Moises wrap was applied for a bulky soft dressing.? Patient was then subsequently awakened from anesthesia and taken to PACU in stable condition tolerated procedure without issues. Incision sites were then dressed with Xeroform 4 x 4's Kerlix Genia wrap and an Moises wrap.? Patient was then awakened from anesthesia and taken to PACU in stable condition. Disposition: Patient taken to PACU in stable condition recovering well.? Dressing on in place clean dry and intact.? Patient was receive appropriate discharge instruction as well as pain medication postoperatively.? Patient may be allowed weightbearing as tolerated to the right hand and encourage range of motion once dressing come down after 72 hours.? Patient to follow-up with me in the office in 2 weeks.? Patient understands and agrees with current plan.? All questions answered.
--- NOTE | 2023-10-02 11:45 | P.BOP_ITS ---
Date of Procedure: [October 02, 2023] Surgeon: [Dr. Eva DO] [employer] General Supervisor(s): [Nile Velasquez PA-C] Procedure(s) performed: [Right thumb trigger release right ring finger trigger release Right ring finger retinacular cyst excision] Findings of the procedure(s): Right thumb trigger finger and right ring trigger finger. Patient also had a retinaculum cyst on right ring finger Estimated blood loss: [5 ml] Specimen(s) removed: [Right ring finger retinaculum cyst] Post-operative diagnosis: [Right thumb trigger finger and right ring trigger finger and right ring finger retinaculum cyst.]
--- NOTE | 2023-10-02 11:45 | PM.PACU ---
PACU note Narrative: Patient is a 57-year-old female just underwent multiple finger trigger release on right hand. Patient transferred to PACU in stable condition. Pain is well controlled. Dressing on hand is dry and in place. Patient's fingers are warm and well-perfused. Patient can wiggle fingers. normal cap refill under 2 seconds. Patient has normal elbow range of motion. Unable to assess sensation due to residual localized anesthetic. Exam: awake Disposition: discharged
[2023-10-02] MEDS: TRAMadol 50 mg Tablet PO (12:39)
--- NOTE | 2023-10-02 12:55 | ANE.PACU2 ---
Inpatient post-anesthesia follow up: Airway intact: Yes Vital signs: Temperature 99.2 F Pulse Rate 68 Respiratory Rate 16 Blood Pressure 170/76 Pulse Oximetry 96 Oxygen Delivery Me thod Room Air Oxygen Flow Rate Fraction of Inspir ed Oxygen Hydration adequate: Yes Nausea and vomiting: No Pain level: 1 Mental status: Baseline
== END 2023-10-02 12:51 | disposition home or self-care (01) ==
PROVIDERS: PCP Nurse Practitioner Family; Visit Provider Student in an Organized Health Care Education/Training Program
PROC: (CPT 26055; principal; 2023-10-02 10:00)
DX: M65.311 Trigger thumb, right thumb (principal); M65.341 Trigger finger, right ring finger; L72.9 Follicular cyst of the skin and subcutaneous tissue, unspecified; K21.9 Gastro-esophageal reflux disease without esophagitis; E66.01 Morbid (severe) obesity due to excess calories; Z68.35 Body mass index [BMI] 35.0-35.9, adult; M06.00 Rheumatoid arthritis without rheumatoid factor, unspecified site
CPT/HCPCS: 26055 ×2; 26160; 88304; J0131; J1885; J2704; J2795; J3490; J7030

== ENCOUNTER → 2023-10-08 09:20 | Outpatient (BNVA) | payer MEDICAID, SELFPAY | PROVIDERS: PCP Nurse Practitioner Family; Visit Provider Nurse Practitioner Family | DX: B07.8 Other viral warts (principal); L82.1 Other seborrheic keratosis; L57.8 Other skin changes due to chronic exposure to nonionizing radiation; B35.3 Tinea pedis; B35.1 Tinea unguium | CPT/HCPCS: 17110; 99214 ==

== ENCOUNTER → 2023-10-22 12:43 | Outpatient (BNVA) | payer MEDICAID, SELFPAY | PROVIDERS: PCP Nurse Practitioner Family; Visit Provider Internal Medicine Rheumatology | DX: M06.00 Rheumatoid arthritis without rheumatoid factor, unspecified site (principal); G57.10 Meralgia paresthetica, unspecified lower limb; R19.7 Diarrhea, unspecified; Z71.85 Encounter for immunization safety counseling; Z79.899 Other long term (current) drug therapy; M47.816 Spondylosis without myelopathy or radiculopathy, lumbar region; M47.814 Spondylosis without myelopathy or radiculopathy, thoracic region; G56.03 Carpal tunnel syndrome, bilateral upper limbs; I10 Essential (primary) hypertension; E78.5 Hyperlipidemia, unspecified; G47.33 Obstructive sleep apnea (adult) (pediatric); E06.3 Autoimmune thyroiditis; Z88.2 Allergy status to sulfonamides; D17.79 Benign lipomatous neoplasm of other sites | CPT/HCPCS: 99214 ==

== ENCOUNTER → 2023-11-26 14:27 | Outpatient (BNVA) | payer MEDICARE, MEDICAID, SELFPAY | PROVIDERS: PCP Nurse Practitioner Family; Visit Provider Nurse Practitioner Family | DX: B07.8 Other viral warts (principal); L57.8 Other skin changes due to chronic exposure to nonionizing radiation | CPT/HCPCS: 17110; 99213 ==

== ENCOUNTER → 2023-12-24 12:47 | Outpatient (BNVA) | payer MEDICARE, MEDICAID, SELFPAY | PROVIDERS: PCP Nurse Practitioner Family; Visit Provider Nurse Practitioner Family | DX: B07.8 Other viral warts (principal); L57.8 Other skin changes due to chronic exposure to nonionizing radiation | CPT/HCPCS: 17110; 99213 ==

== ENCOUNTER → 2024-01-29 13:53 | Outpatient (BNVA) | payer MEDICARE, OTHER, SELFPAY | PROVIDERS: PCP Nurse Practitioner Family; Visit Provider Nurse Practitioner Family | DX: B07.8 Other viral warts (principal); D69.2 Other nonthrombocytopenic purpura; L71.8 Other rosacea; L81.4 Other melanin hyperpigmentation | CPT/HCPCS: 17110; 99213 ==

== ENCOUNTER → 2024-05-19 10:48 | Outpatient (BNVA) | payer MEDICARE, MEDICAID, SELFPAY | PROVIDERS: PCP Nurse Practitioner Family; Visit Provider Internal Medicine Rheumatology | DX: Z79.899 Other long term (current) drug therapy (principal); M06.00 Rheumatoid arthritis without rheumatoid factor, unspecified site; Z71.89 Other specified counseling; G57.10 Meralgia paresthetica, unspecified lower limb; R19.7 Diarrhea, unspecified | CPT/HCPCS: 80076; 82565; 85025; 85652; 86140; 99214 ==

== ENCOUNTER 2024-06-04 08:59 | Oncology outpatient (recurring) (ONCR) | payer MEDICARE, MEDICAID, SELFPAY ==
[2024-06-04 09:42] VITALS: BP 146/84; PULSE 86; RESP 16; TEMP 36.6; O2SAT 96
[2024-06-04] MEDS: sodium chloride 0.9% 250 ML 75 ML IV (09:44)
[2024-06-04] MEDS: acetaminophen 325 mg Tablet 650 MG PO (09:45)
[2024-06-04] MEDS: diphenhydrAMINE 50 mg/mL SDV 1mL 25 MG IVP (09:52)
--- NOTE | 2024-06-04 10:53 | PC.NURSE ---
Patient was given ordered pre medications. Tylenol 650 mg and IVP Benadryl 25mg. During the slow push of Benadryl patient started complaining of feeling flushed and having a burning sensation in her abdomen. Blood pressure 198/124 HR [address] Ayla with Dr Nair's office was called. Per Dr Nair we were to monitor patient for 5-10 minutes assessing her blood pressure and heart rate. After 10 minutes blood pressure was 168/88 heart rate 82. Per Ayla, Novasc 10 mg daily is being called in, patient is to monitor her blood pressure twice daily at home, call results to Ayla next week. Patient will not be receiving treatment today per Dr Nair. Per Ayla, the patient will be rescheduled for infusion when Dr Nair feels her blood pressure is adequately controlled. Information was given to patient and spa receptionist. Patient was instructed to seek immediate medical attention if her blood pressure elevates to this level at home. Patient verbalized understanding of normal blood pressure readings.
[2024-06-04 14:42] VITALS: BP 168/88; PULSE 82; RESP 16; TEMP 36.6; O2SAT 96
== END 2024-06-26 23:59 | disposition home or self-care (01) ==
PROVIDERS: PCP Nurse Practitioner Family; Visit Provider Internal Medicine Rheumatology
DX: M06.00 Rheumatoid arthritis without rheumatoid factor, unspecified site (principal); Z79.899 Other long term (current) drug therapy; Z53.9 Procedure and treatment not carried out, unspecified reason
CPT/HCPCS: 96375; J1200; J2919; J7050

== ENCOUNTER → 2024-08-25 11:06 | Outpatient (BNVA) | payer MEDICARE, MEDICAID, SELFPAY | PROVIDERS: PCP Nurse Practitioner Family; Visit Provider Internal Medicine Rheumatology | DX: Z79.899 Other long term (current) drug therapy (principal); M06.00 Rheumatoid arthritis without rheumatoid factor, unspecified site; Z71.89 Other specified counseling; G57.10 Meralgia paresthetica, unspecified lower limb; R19.7 Diarrhea, unspecified | CPT/HCPCS: 80076; 82565; 85025; 85651; 86140; 99214 ==

== ENCOUNTER 2024-09-25 08:38 | Oncology outpatient (recurring) (ONCR) | payer MEDICARE, MEDICAID, SELFPAY ==
[2024-09-25] VITALS (9 sets, daily range): BP systolic 124–190; BP diastolic 72–92; PULSE 62–76; RESP 16–18; TEMP 36.1–36.4; O2SAT 95–97
[2024-09-25] MEDS: sodium chloride 0.9% 250 ML 75 ML IV (09:36)
[2024-09-25] MEDS: acetaminophen 325 mg Tablet 650 MG PO (09:38)
[2024-09-25] MEDS: diphenhydrAMINE 50 mg/mL SDV 1mL 25 MG IVP (09:38)
[2024-09-25] MEDS: methylPREDNISolone sod succ 40 mg/mL INJ IVP (09:44)
[2024-09-25] MEDS: infliximab-abda 500 MG in sodium chloride 0.9% 250 ML 10 MG IV (10:26)
== END 2024-09-26 23:59 | disposition home or self-care (01) ==
PROVIDERS: PCP Nurse Practitioner Family; Visit Provider Internal Medicine Rheumatology
DX: M06.00 Rheumatoid arthritis without rheumatoid factor, unspecified site (principal); Z79.899 Other long term (current) drug therapy
CPT/HCPCS: 96375; 96413; 96415; A4222; J1200; J2919; J7050; J9999; Q5104

== ENCOUNTER 2024-10-01 10:12 | Outpatient (CLI) | payer MEDICARE, MEDICAID, SELFPAY ==
--- NOTE | 2024-10-01 10:22 | MM_ITS ---
WS: [id number] BILATERAL SCREENING DIGITAL TOMOSYNTHESIS MAMMOGRAM WITH CAD HISTORY: SCREENING COMPARISON: 05/07/2022, 07/22/2019 Bilateral CC and MLO views with tomosynthesis and synthetic mammography submitted. Computer aided detection analyzed. Breast composition: There are scattered areas of fibroglandular density. No suspicious masses, microcalcifications or architectural distortion. There are a few scattered benign calcifications. No suspicious grouping of calcifications. MM/MM [facility] tomosynthesis [id number] IMPRESSION: BI-RADS: 2 - Benign. FOLLOW UP: 1 Year Follow-up
== END 2024-10-01 10:13 | disposition home or self-care (01) ==
PROVIDERS: PCP Nurse Practitioner Family; Visit Provider Nurse Practitioner Family
DX: Z12.31 Encounter for screening mammogram for malignant neoplasm of breast (principal); R92.323 Mammographic fibroglandular density, bilateral breasts; R92.1 Mammographic calcification found on diagnostic imaging of breast
CPT/HCPCS: 77063; 77067

== ENCOUNTER 2024-10-15 14:04 | Emergency (ER) | payer MEDICARE, MEDICAID, SELFPAY ==
--- NOTE | 2024-10-15 14:13 | ECG_ITS ---
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 Measurements Intervals [place] Rate: 72 P: 25 VA: 123 QRS: -5 QRSD: 142 T: 165 QT: 419 QTc: 461 Interpretive Statements SINUS RHYTHM LEFT BUNDLE BRANCH BLOCK [120+ ms QRS DURATION, 80+ ms Q/S IN V1/V2, 85+ ms R IN I/aVL/V5/V6] No previous ECG available for comparison Electronically Signed On 10-15-2024 17:44:47 CDT by Jakob Hammond M.D. [email or web address]
[2024-10-15 14:14] VITALS: BP 130/64; PULSE 73; RESP 16; TEMP 36.8; O2SAT 97
--- NOTE | 2024-10-15 14:30 | ED_ITS ---
HPI - Extremity Problem General: Chief complaint: Extremity Injury, Lower Stated complaint: fell -wounds on both knees Time Seen by Provider: 10/15/24 14:28 History of Present Illness: 59-year-old female presents emergency ro om with ground-level mechanical fall landed on her hands and knees has abrasions bilaterally to the knee she was ambulatory after that she did not strike her head she did not lose consciousness. No fever sweats chills no vomiting or diarrhea Associated symptoms: Deny chest pain, fever(s) or rash Related Data Home Medications ?Medication ?Instructions ?Recorded ?Confirmed loratadine 10 mg tablet 10 mg PO BEDTIME 06/09/19 potassium chloride 20 mEq 40 meq PO DAILY 05/25/23 tablet,extended release(part/cryst) levothyroxine 100 mcg tablet 100 mcg PO QAM 10/15/24 0 10/15/24 rosuvastatin 20 mg tablet 20 mg PO BEDTIME 10/15/24 Previous Rx's ?Medication ?Instructions ?Recorded Sole Supports #1 ea 09/22/19 duloxetine 30 mg capsule,delayed 30 mg PO BID pain #6 0 caps 12/24/22 release (Cymbalta) pregabalin 100 mg capsule (Lyrica) 100 mg PO TID chron ic pain 30 10/17/23 days #90 caps amlodipine 10 mg tablet (Norvasc) 10 mg PO DAILY #30 t abs 07/27/24 hydroxychloroquine 200 mg tablet 200 mg PO BID #180 ta bs 08/25/24 pantoprazole 40 mg tablet,delayed 40 mg PO DAILY #90 t abs 08/25/24 release diclofenac sodium 75 mg 75 mg PO Q12H PRN pain #20 t abs 10/15/24 tablet,delayed release Allergies Allergy/AdvReac Type Severity Reaction Status Date / Time Penicillins Allergy HIVES Verified 08/25/24 11:39 Sulfa (Sulfonamide Allergy HIVES Verified 08/25/24 11:39 Antibiotics) zonisamide (From Zonegran) Allergy HIVES Verified 08/25/24 11:39 amlodipine AdvReac Intermediate ADR/ALGY-Fl Verified 08/25/24 12:59 ushing Review of Systems Const: Denies: fever(s) or chills Card: Denies: chest pain Resp: Denies: dyspnea GI: Denies: abdominal pain : Denies: dysuria, urinary frequency or urinary urgency Musc: Denies: neck pain or back pain Skin/Breast: Denies: rash PFSH ED PFSH: Medical History Diarrhea in adult patient Greater trochanteric pain syndrome of both lower extremities Psychiatric care Encounter for long-term (current) use of NSAIDs Bronchitis Meralgia paraesthetica Chronic steroid use Immunization counseling Seronegative rheumatoid arthritis Inflammatory arthritis High risk medication use Sjogren's syndrome Long-term current use of opiate analgesic Pain management contract signed Smoker Lumbosacral spondylosis with radiculopathy Screen for colon cancer Surgical History History of colonoscopy with polypectomy (~06/2019) History of laparoscopic cholecystectomy 1998 History of endometrial ablation Family History Other Cancer Chronic kidney disease (CKD) Rheumatoid arthritis Denies family history of Diabetes Lupus Systemic lupus erythematosus (SLE) in adult Anesthesia complication Bleeding disorder Hypertension Stroke Social History Smoking and tobacco/nicotine status: current every day tobacco/nicotine user cigarettes Packs smoked per day: 0.5 Years cigarettes smoked: 20 Alcohol intake: never Substance/Drug Use: never Adopted: No Caregiver/support person: Yes Lives independently: Yes Household members: spouse Housing: House Highest education level completed: High School Graduate service: No Current occupational exposures/hazards: No Pets and animals: No Sexually active: No Do you think of yourself as: Straight/Heterosexual Current gender identity: Female Maral/Taoist: Restorationist Special maral needs: No Agree to transfusion: No Physical Exam Const: GENERAL APPEARANCE: cooperative ORIENTATION/CONSCIOUSNESS: Yes awake, Yes oriented to person, Yes oriented to place and Yes oriented to time HENMT: COMMON NORMALS: normocephalic, atraumatic and hearing grossly normal bilaterally HEAD & SCALP: normocephalic and atraumatic Resp: COMMON NORMALS: normal respiratory effort, No retractions, No use of accessory muscles and clear to auscultation bilaterally AUSCULTATION: clear to auscultation bilaterally Cardio: COMMON NORMALS: regular rate, regular rhythm and No murmurs present (Cardio) RATE: regular rate RHYTHM: regular rhythm GI: COMMON NORMALS: Soft to palpation and No hepatosplenomegaly present AUSCULTATION: Yes normoactive bowel sounds PALPATION: Yes Soft to palpation, No Tenderness to palpation present (GI), No Guarding due to palpation present (GI) and Yes No hepatosplenomegaly present Extremity: COMMON NORMALS: normal to inspection, capillary refill normal, no clubbing, cyanosis or edema, no calf tenderness and no pedal edema OTHER: Abrasions bilaterally in the lower portion of the patella no obvious deformity no full-thickness laceration Neuro: SENSORIUM/ORIENTATION: Yes oriented to person, Yes oriented to place and Yes oriented to time Skin: COMMON NORMALS: no rashes or lesions noted GENERAL SKIN EXAM: no rashes or lesions noted Course Vital Signs: Vital signs: Vital Signs Temperature 98.2 F 10/15/24 14:14 Pulse Rate 64 10/15/24 16:56 Respiratory Rate 16 10/15/24 14:14 Blood Pressure 136/68 10/15/24 16:56 Pulse Oximetry 97 10/15/24 16:56 Oxygen Delivery Me thod Room Air 10/15/24 16:00 MDM - Extremity (Nontraumatic) Medical Decision Making X-rays negative. Patient is able to ambulate no other injuries noted on exam discharge patient home topical antibiotic ointment anti-inflammatories as needed Lab Data I reviewed the patient's lab results. Radiology Impressions Knee X-Ray 10/15/24 14:35 IMPRESSION: No acute findings. All radiology interpretation(s) finalized by discharge Discharge Plan Discharge Patient Disposition: Home Clinical Impression: Fall, Abrasion of knee, bilateral Condition: Stable Prescriptions: New diclofenac sodium 75 mg tablet,delayed release (DR/EC) 75 mg PO Q12H PRN (Reason: pain) Qty: 20 0RF No Action (DME) Sole Supports See Rx Instructions .ROUTE .MEDSUPPLY Qty: 1 0RF Rx Instructions: As directed loratadine 10 mg tablet 10 mg PO BEDTIME hydroxychloroquine 200 mg tablet 200 mg PO BID Qty: 180 1RF pantoprazole 40 mg tablet,delayed release (DR/EC) 40 mg PO DAILY Qty: 90 1RF Rx Instructions: take 1 30 minutes before breakfast daily duloxetine [Cymbalta] 30 mg capsule,delayed release(DR/EC) 30 mg PO BID Qty: 60 5RF pregabalin [Lyrica] 100 mg capsule 100 mg PO TID MDD 3 30 Days Qty: 90 2RF amlodipine [Norvasc] 10 mg tablet 10 mg PO DAILY Qty: 30 1RF potassium chloride 20 mEq tablet,ER particles/crystals 40 meq PO DAILY levothyroxine 100 mcg tablet 100 mcg PO QAM rosuvastatin 20 mg tablet 20 mg PO BEDTIME Discharge Orders: Discharge ED (Routine); Ordered 10/15/24 Ordered By: Major Dawkins Referrals: Abby Aguirre, OFFICE COORDINATOR RECEPTIONIST [Primary Care Provider, Unknown] Discharge Diet: Usual diet Discharge Activity: Increase activity as tolerated Patient Instructions: Opioid Safety, Pain Management Activity Restrictions/Additional Instructions: Thank you for choosing [facility] for your healthcare needs today. It is very important that you follow up as instructed or that you return to the Emergency Department should you have concerns or if your condition changes or worsens in any way. You were seen in the emergency room after a fall. You have abrasions freddy aterally on the knees. She had told us your tetanus was within the last 5 years. X-rays did not show any acute fractures. Apply [id number] topical antibiotic ointment to the wounds until they have healed. Follow-up with your primary care doctor as needed. Print Language: Chinese Coding Level of Care Code ED Window Draper for Madelyn Garcia
--- NOTE | 2024-10-15 14:35 | XRR_ITS ---
PROCEDURE INFORMATION: Exam: XR Right Knee Exam date and time: 10/15/2024 2:49 PM Age: 59 years old Clinical indication: Injury or trauma; Other: Not specified; Blunt trauma; Knee; Right TECHNIQUE: Imaging protocol: Radiologic exam of the right knee. Views: 3 views. COMPARISON: CR XR foot RT min 3V* [id number] 10/24/2022 11:31 AM FINDINGS: Bones/joints: Normal. Soft tissues: Normal. XR/XR knee RT 3V* [id number] IMPRESSION: No acute findings.
--- NOTE | 2024-10-15 14:35 | XRR_ITS ---
PROCEDURE INFORMATION: Exam: XR Left Knee Exam date and time: 10/15/2024 2:45 PM Age: 59 years old Clinical indication: Injury or trauma; Other: Not specified; Blunt trauma; Knee; Left TECHNIQUE: Imaging protocol: Radiologic exam of the left knee. Views: 3 views. COMPARISON: CR XR foot LT min 3V* [id number] 06/11/2019 1:27 PM FINDINGS: Bones/joints: Normal. Soft tissues: Normal. XR/XR knee LT 3V* [id number] IMPRESSION: No acute findings.
[2024-10-15] MEDS: ketorolac 60 mg/2 mL INJ IM (15:12)
[2024-10-15 16:00] VITALS: BP 137/59; PULSE 66; O2SAT 95
[2024-10-15 16:56] VITALS: BP 136/68; PULSE 64; O2SAT 97
== END 2024-10-15 16:57 | disposition home or self-care (01) ==
PROVIDERS: Emergency Provider Family Medicine; PCP Nurse Practitioner Family
DX: S80.212A Abrasion, left knee, initial encounter (principal); S80.211A Abrasion, right knee, initial encounter; W19.XXXA Unspecified fall, initial encounter; F17.210 Nicotine dependence, cigarettes, uncomplicated
CPT/HCPCS: 73562; 93005; 96372; 99284; J1885

== ENCOUNTER 2024-11-09 08:43 | Oncology outpatient (recurring) (ONCR) | payer MEDICARE, MEDICAID, SELFPAY ==
[2024-11-09] VITALS (8 sets, daily range): BP systolic 143–162; BP diastolic 70–85; PULSE 65–74; RESP 16; TEMP 36.1–36.4; O2SAT 94–96
[2024-11-09 09:51] LABS: Hematocrit 42.1 % (36-47); Hemoglobin 13.60 g/dL (11.27-16.99); Mean Corpuscular HGB Conc 32.3 g/dL (30-55); Mean Corpuscular Hemoglobin 30.0 pg (27-33); Mean Corpuscular Volume 92.9 fl (85-98); Nucleated Red Blood Cells % 0 %; Platelet Count 215 10^3/cmm (157-399); Red Blood Count 4.53 10^6/uL (3.85-5.65); White Blood Count 7.19 10^3/uL (3.29-11.43)
[2024-11-09 10:09] LABS: Alanine Aminotransferase 10 U/L (0-33); Albumin Level 3.9 g/dL (3.5-5.2); Alkaline Phosphatase 132 U/L (35-105); Aspartate Amino Transferase 16 U/L (0-32); Creatinine Clr Calc Pharmacy 69.7676; Globulin 3.1 g/dL (1.3-4.6); Total Protein 7.0 g/dL (6.6-8.7)
[2024-11-09] MEDS: methylPREDNISolone sod succ 40 mg/mL INJ IVP (10:47)
[2024-11-09] MEDS: diphenhydrAMINE 50 mg/mL SDV 1mL 25 MG IVP (10:52)
[2024-11-09] MEDS: infliximab-abda 500 MG in sodium chloride 0.9% 250 ML 10 MG IV (11:43)
== END 2024-11-26 23:59 | disposition home or self-care (01) ==
PROVIDERS: PCP Nurse Practitioner Family; Visit Provider Internal Medicine Rheumatology
DX: M06.00 Rheumatoid arthritis without rheumatoid factor, unspecified site (principal); Z79.899 Other long term (current) drug therapy
CPT/HCPCS: 80076; 82565; 85025; 85651; 86140; 96375; 96413; 96415; A4222; J1200; J2919; J7050; J9999; Q5104

== ENCOUNTER → 2024-11-24 09:21 | Outpatient (BNVA) | payer MEDICARE, MEDICAID, SELFPAY | PROVIDERS: PCP Nurse Practitioner Family; Visit Provider Anesthesiology Pain Medicine | DX: M54.50 Low back pain, unspecified (principal); M79.605 Pain in left leg | CPT/HCPCS: 99214 ==

== ENCOUNTER 2024-12-04 08:46 | Outpatient (CLI) | payer MEDICARE, SELFPAY ==
--- NOTE | 2024-12-04 08:45 | MR_ITS ---
WS: [id number] MRI LUMBAR SPINE NONCONTRAST TECHNIQUE: Sagittal T1, T2 and STIR imaging. Axial T1 and T2 imaging. CLINICAL INFORMATION: M54.16 - Radiculopathy, lumbar region COMPARISON: 08/15/2022 FINDINGS: Mild lumbar curve. No acute compression. No high-grade central canal stenosis. Incidental fatty filum. Stable incidental focus of calcification L3-4 in the dorsal sac is unchanged L1-L2: Normal. L2-L3: Normal. L3-L4: No significant disc bulging. Mild facet arthropathy. Spinal canal and foramen are patent. L4-L5: Minimal anterolisthesis. No significant disc bulging. Moderate facet arthropathy. Spinal canal and foramen are patent. L5-S1: No significant disc bulging. Moderate facet arthropathy. Spinal canal and foramen are patent. MR/MR lumbar spine wo con* [id number] IMPRESSION: 1. Mild lumbar curve. No acute compression. No high-grade central canal stenos is. 2. Moderate facet arthropathy L4-L5 and L5-S1. 3. Slight anterolisthesis L4 on L5 unchanged. 4. No significant spinal canal or foraminal narrowing.
== END 2024-12-04 08:47 | disposition home or self-care (01) ==
LOC: RAD 08:48
PROVIDERS: PCP Nurse Practitioner Family; Visit Provider Anesthesiology Pain Medicine
DX: M47.26 Other spondylosis with radiculopathy, lumbar region (principal); M47.817 Spondylosis without myelopathy or radiculopathy, lumbosacral region
CPT/HCPCS: 72148

== ENCOUNTER 2024-12-21 08:40 | Oncology outpatient (recurring) (ONCR) | payer MEDICARE, SELFPAY ==
[2024-12-21] VITALS (7 sets, daily range): BP systolic 144–172; BP diastolic 70–89; PULSE 61–71; RESP 16–17; TEMP 35.7–36.4; O2SAT 94–99
[2024-12-21] MEDS: diphenhydrAMINE 50 mg/mL SDV 1mL 25 MG IVP (09:26)
[2024-12-21] MEDS: methylPREDNISolone sod succ 40 mg/mL INJ IVP (09:31)
[2024-12-21] MEDS: infliximab-abda 500 MG in sodium chloride 0.9% 250 ML 10 MG IV (09:56)
== END 2024-12-27 23:59 | disposition home or self-care (01) ==
PROVIDERS: PCP Nurse Practitioner Family; Visit Provider Internal Medicine Rheumatology
DX: M06.00 Rheumatoid arthritis without rheumatoid factor, unspecified site (principal); Z79.899 Other long term (current) drug therapy
CPT/HCPCS: 96375; 96413; 96415; A4222; J1200; J2919; J7050; J9999; Q5104

== ENCOUNTER → 2025-01-04 13:55 | Outpatient (BNVA) | payer MEDICARE, MEDICAID, SELFPAY | PROVIDERS: PCP Nurse Practitioner Family; Visit Provider Anesthesiology Pain Medicine | DX: M54.50 Low back pain, unspecified (principal); M79.605 Pain in left leg | CPT/HCPCS: 99214 ==

== ENCOUNTER → 2025-01-06 13:53 | Outpatient (BNVA) | payer MEDICARE, MEDICAID, SELFPAY | PROVIDERS: PCP Nurse Practitioner Family; Visit Provider Internal Medicine Rheumatology | DX: M06.00 Rheumatoid arthritis without rheumatoid factor, unspecified site (principal); M35.00 Sjogren syndrome, unspecified; Z71.85 Encounter for immunization safety counseling; Z79.899 Other long term (current) drug therapy; G57.10 Meralgia paresthetica, unspecified lower limb; R19.7 Diarrhea, unspecified; G56.03 Carpal tunnel syndrome, bilateral upper limbs; I10 Essential (primary) hypertension; E78.5 Hyperlipidemia, unspecified; E06.3 Autoimmune thyroiditis | CPT/HCPCS: 99214 ==

== ENCOUNTER 2025-02-01 09:52 | Oncology outpatient (recurring) (ONCR) | payer MEDICARE, MEDICAID, SELFPAY ==
[2025-02-01 10:51] LABS: Hematocrit 42.9 % (36-47); Hemoglobin 14.30 g/dL (11.27-16.99); Mean Corpuscular HGB Conc 33.3 g/dL (30-55); Mean Corpuscular Hemoglobin 31.4 pg (27-33); Mean Corpuscular Volume 94.3 fl (85-98); Nucleated Red Blood Cells % 0 %; Platelet Count 203 10^3/cmm (157-399); Red Blood Count 4.55 10^6/uL (3.85-5.65); White Blood Count 6.33 10^3/uL (3.29-11.43)
[2025-02-01] MEDS: diphenhydrAMINE 50 mg/mL SDV 1mL 25 MG IVP (11:07)
[2025-02-01] MEDS: methylPREDNISolone sod succ 40 mg/mL INJ IVP (11:08)
[2025-02-01 11:12] LABS: Alanine Aminotransferase 13 U/L (0-33); Albumin Level 4.1 g/dL (3.5-5.2); Alkaline Phosphatase 115 U/L (35-105); Aspartate Amino Transferase 21 U/L (0-32); Creatinine Clr Calc Pharmacy 62.9602; Globulin 3.1 g/dL (1.3-4.6); Total Protein 7.2 g/dL (6.6-8.7)
[2025-02-01 11:20] VITALS: BP 180/80; PULSE 65; RESP 17; TEMP 36.4; O2SAT 98
[2025-02-01] MEDS: infliximab-abda 500 MG in sodium chloride 0.9% 250 ML 175 MG IV (11:46)
[2025-02-01 12:05] VITALS: BP 162/94; PULSE 61; RESP 17; TEMP 36.6; O2SAT 97
[2025-02-01 12:25] VITALS: BP 172/80; PULSE 65; RESP 16; TEMP 36.4; O2SAT 97
[2025-02-01 12:55] VITALS: BP 155/74; PULSE 67; RESP 16; TEMP 36.7; O2SAT 95
[2025-02-01 13:39] VITALS: BP 128/73; PULSE 75; RESP 16; TEMP 36.8; O2SAT 95
== END 2025-02-26 23:59 | disposition home or self-care (01) ==
PROVIDERS: PCP Nurse Practitioner Family; Visit Provider Internal Medicine Rheumatology
DX: M06.00 Rheumatoid arthritis without rheumatoid factor, unspecified site (principal); Z79.899 Other long term (current) drug therapy
CPT/HCPCS: 80076; 82306; 82565; 85025; 85651; 86140; 86480; 96365; 96366; 96375; A4222; J1200; J2919; J7050; J9999; Q5104

== ENCOUNTER 2025-03-18 08:32 | Oncology outpatient (recurring) (ONCR) | payer MEDICARE, MEDICAID, SELFPAY ==
[2025-03-18 08:41] VITALS: BP 124/73; PULSE 64; TEMP 36.3; O2SAT 95
[2025-03-18 09:01] LABS: Hematocrit 39.8 % (36-47); Hemoglobin 13.10 g/dL (11.27-16.99); Mean Corpuscular HGB Conc 32.9 g/dL (30-55); Mean Corpuscular Hemoglobin 31.3 pg (27-33); Mean Corpuscular Volume 95.0 fl (85-98); Nucleated Red Blood Cells % 0 %; Platelet Count 208 10^3/cmm (157-399); Red Blood Count 4.19 10^6/uL (3.85-5.65); White Blood Count 9.73 10^3/uL (3.29-11.43)
[2025-03-18 09:19] LABS: Alanine Aminotransferase 12 U/L (0-33); Albumin Level 3.9 g/dL (3.5-5.2); Alkaline Phosphatase 104 U/L (35-105); Aspartate Amino Transferase 19 U/L (0-32); Globulin 2.8 g/dL (1.3-4.6); Total Protein 6.7 g/dL (6.6-8.7)
[2025-03-18] MEDS: diphenhydrAMINE 50 mg/mL SDV 1mL 25 MG IVP (09:20)
[2025-03-18] MEDS: methylPREDNISolone sod succ 40 mg/mL INJ IVP (09:23)
[2025-03-18] MEDS: infliximab-abda 500 MG in sodium chloride 0.9% 250 ML 250 MG IV (09:48)
[2025-03-18 10:59] VITALS: BP 119/68; PULSE 64; TEMP 36.3; O2SAT 96
== END 2025-03-28 23:59 | disposition home or self-care (01) ==
PROVIDERS: PCP Nurse Practitioner Family; Visit Provider Internal Medicine Rheumatology
DX: M06.00 Rheumatoid arthritis without rheumatoid factor, unspecified site (principal); Z79.899 Other long term (current) drug therapy
CPT/HCPCS: 80076; 82565; 85025; 85651; 86140; 96375; 96413; A4222; J1200; J2919; J7050; J9999; Q5104